=== PATIENT | male | born 1980 | race Caucasian/White ===

== ENCOUNTER 2019-03-11 14:15 | Inpatient (IN) | payer SELFPAY ==
[~2019-03-11 14:15] MED LIST: Iopamidol 370 76% 100 ML VIAL ONE; Iopamidol 370 76% 50 ML VIAL FS ONE
[2019-03-11] MEDS ORDERED: Ketamine 50 MG/ML (10ML VIAL) ONE (14:17)
[2019-03-11] MEDS ORDERED: Rocuronium Bromide 10 MG/ML (10ML VIAL) ONE (14:17)
[2019-03-11] MEDS ORDERED: Norepinephrine 4 MG/4 ML VIAL ONE (14:36)
[2019-03-11] MEDS ORDERED: Aspirin 300 MG Suppository ONE (14:39)
--- NOTE | 2019-03-11 14:39 | RAD ---
EXAM: XR Chest 1 View Portable PROVIDED CLINICAL HISTORY: Chest pain COMPARISON: None FINDINGS: The cardiac silhouette appears enlarged, which may be least partially on the basis of portable techni que. There is deviation of the trachea rightward which could be on the basis of mediastinal mass. Endotracheal tube is noted, which terminates just proximal to the region of the thoracic inlet. Exter nal defibrillator pad overlies the right chest. No definite focal consolidation. Assessment for pleural fluid and pneumothorax is limited given the supine nature of the study. IMPRESSION: Rightward deviation of the trachea, which could indicate mediastinal mass.
[2019-03-11] MEDS ORDERED: fentaNYL Citrate/PF 2,000 MCG in Sodium Chloride 0.9% 60 ML IV SCH (14:42)
[2019-03-11 14:44] LABS: Bilirubin Negative (Negative); Blood, Urine Small (Negative); Clarity Cloudy (Clear); Glucose, Urine (Dipstick) Negative (Negative); Leukocyte Negative (Negative); Nitrite Negative (Negative); Protein, Urine (Dipstick) > or equal to 300 mg/dL (Neg-Trace); Urobilinogen 0.2 mg/dL (0.2-1.0)
[2019-03-11 14:44] LABS: Hemoglobin 15.5 g/dL (14.0-18.0); Mean Corpuscular HGB CONC 33.5 g/dL (32.0-36.0); Mean Corpuscular Volume 89.6 fL (78.0-98.0); Mean Platelet Volume 10.2 fL (7.4-10.4); Platelet Count 188 thou/uL (130-400); RBC Distribution Width 12.2 % (11.5-14.5); Red Blood Cell (RBC) Count 5.15 mill/uL (4.70-6.10)
[2019-03-11 14:48] LABS: ALT (SGPT) 234 U/L (8-55); AST (SGOT) 97 U/L (5-34); Albumin 4.2 g/dL (3.5-5.0); Alkaline Phosphatase 57 U/L (40-150); Anion Gap 26 mmol/L (10-20); BUN (Urea Nitrogen) 18 mg/dL (8.9-20.6); Bilirubin, Total 0.4 mg/dL (0.2-1.2); CK (CPK) 224 U/L (30-200); Calc. Creatinine Clearance 0 mL/min (70-130); Calcium 8.9 mg/dL (7.8-10.44); Carbon Dioxide 14 mmol/L (22-29); Chloride 103 mmol/L (98-107); Estimated GFR-MDRD 62; Globulin 2.8 g/dL (2.4-3.5); Glucose 275 mg/dL (70-105); Potassium 3.3 mmol/L (3.5-5.1); Sodium 140 mmol/L (136-145)
[2019-03-11 14:50] LABS: Bacteria/HPF None Seen HPF (None Seen); WBC/HPF 0-3 HPF (0-3)
[2019-03-11 14:51] LABS: Sperm/HPF 4+ HPF (None Seen)
[2019-03-11 14:51] LABS: INR-International Normal Ratio 1.2; PTT 34.2 SEC (22.9-36.1)
[2019-03-11 14:59] LABS: Actual Bicarbonate (HCO3a) 16.4 mEq/L (22-28); Analyzer IN Cardio ER; Base Excess (BEa) -13.2 mEq/L (-2.0 to +3.0); CO2 Tension 52.7 mmHg (35.0-45.0); Calcium, Ionized 1.14 mmol/L (1.12-1.30); Carboxyhemoglobin (COHb) 0.1 gm% (0.0-3.0); Hemoglobin (Hb) 15.1 g/dL (14.0-18.0); O2 Tension (PaO2) 80.3 mmHg (80.0-100.0); Potassium - ABG Lab 3.33 mmol/L (3.70-5.30)
[2019-03-11 15:00] LABS: ALV-art Gradient 566.825 (0-20); Puncture Site RRA; pH, Arterial 7.11 (7.35-7.45)
[2019-03-11 15:11] LABS: Band 20 % (5-11); Lymphocytes 41 % (21-51); MDiff Complete? YES; Monocytes 6 % (0-10); Neutrophil 33 % (42-75); Platelet Morphology Comment Appears Adequate
[2019-03-11] MEDS ORDERED: Amiodarone 450 MG in Dextrose 5% in Water 250 ML IVPB SCH (15:15)
[2019-03-11] MEDS ORDERED: Sodium Chloride 0.9% 1,000 ML IV SCH ×2 (15:45→17:30)
[2019-03-11 16:00] LABS: Actual Bicarbonate (HCO3a) 22.5 mEq/L (22-28); O2 Tension (PaO2) 66.7 mmHg (80.0-100.0); pH, Arterial 7.19 (7.35-7.45)
[2019-03-11] MEDS ORDERED: Propofol 1,000 MG/100 ML VIAL IV ONE (16:00)
[2019-03-11 16:01] LABS: Base Excess (BEa) -6.7 mEq/L (-2.0 to +3.0); Carboxyhemoglobin (COHb) 0.3 gm% (0.0-3.0); Hemoglobin (Hb) 16.3 g/dL (14.0-18.0)
[2019-03-11 16:02] LABS: Calcium, Ionized 1.11 mmol/L (1.12-1.30); Potassium - ABG Lab 4.14 mmol/L (3.70-5.30); Puncture Site A-LINE
[2019-03-11] MEDS ORDERED: SYSTANE 3.5 GM TUBE EA EYE PRN (16:28)
[2019-03-11] MEDS ORDERED: Norepinephrine 8 MG/0.9% NS 250 ML IVPB PRN (16:28)
[2019-03-11] MEDS ORDERED: Insulin Regular 300 UNITS/3 ML VIAL SC PRN (16:28)
[2019-03-11] MEDS ORDERED: Vecuronium 10 MG VIAL ONE ×2 (16:29→17:16)
[2019-03-11] MEDS ORDERED: Sterile Water 10 ML ONE ×5 (16:30→23:41)
[2019-03-11 16:34] LABS: Actual Bicarbonate (HCO3a) 22.6 mEq/L (22-28); Base Excess (BEa) -3.3 mEq/L (-2.0 to +3.0); CO2 Tension 43.5 mmHg (35.0-45.0); Calcium, Ionized 1.07 mmol/L (1.12-1.30); Carboxyhemoglobin (COHb) 0.6 gm% (0.0-3.0); O2 Tension (PaO2) 97.5 mmHg (80.0-100.0); Potassium - ABG Lab 4.48 mmol/L (3.70-5.30); pH, Arterial 7.33 (7.35-7.45)
[2019-03-11] MEDS ORDERED: Morphine 2 MG/ML SYRINGE SLOW IVP PRN (16:34)
[2019-03-11] MEDS ORDERED: Fentanyl BOLUS 250 ML IVPB PRN (16:34)
[2019-03-11] MEDS ORDERED: Propofol BOLUS 1,000 MG/100 ML VIAL IV PRN (16:34)
[2019-03-11 16:40] LABS: ALV-art Gradient 347.225 (0-20); Puncture Site LINE
[2019-03-11] MEDS ORDERED: Heparin 10,000 UNITS/ 10 ML VIAL ONE (17:00)
[2019-03-11] MEDS ORDERED: Sodium Bicarb 50 MEQ/50 ML Abboject 8.4% SYRINGE ONE (17:00)
[2019-03-11] MEDS: Piperacillin/Tazobactam 3.375 GM in Sodium Chloride 0.9% 100 ML IVPB SCH ×2 (17:21→23:44)
[2019-03-11] MEDS: Ventilator Sedation Protocol FS SCH (17:25)
[2019-03-11] MEDS: fentaNYL Citrate/PF 2,000 MCG in Sodium Chloride 0.9% 60 ML IV SCH (17:26)
[2019-03-11] MEDS ORDERED: DO NOT USE PRE-EXISTING LYTE PROTOCOL FS SCH (17:30)
[2019-03-11] MEDS ORDERED: ALL FLUIDS SHOULD BE DEXTROSE FREE IF POSSIBLE FS SCH (17:30)
[2019-03-11 18:21] LABS: Lactic Acid 3.4 mmol/L (0.5-2.2)
[2019-03-11 18:24] LABS: Anion Gap 16 mmol/L (10-20); BUN (Urea Nitrogen) 18 mg/dL (8.9-20.6); Calc. Creatinine Clearance 193 mL/min (70-130); Calcium 8.5 mg/dL (7.8-10.44); Carbon Dioxide 17 mmol/L (22-29); Chloride 106 mmol/L (98-107); Estimated GFR-MDRD Greater than 90; Glucose 156 mg/dL (70-105); Magnesium 2.2 mg/dL (1.6-2.6); Potassium 4.2 mmol/L (3.5-5.1); Sodium 135 mmol/L (136-145)
[2019-03-11 19:12] LABS: CKMB 246.7 ng/mL (0-6.6)
--- NOTE | 2019-03-11 19:28 | HP ---
HISTORY OF PRESENT ILLNESS: Jorje Babin is a 39-year-old white male, who apparently was complaining of severe chest discomfort to his family. They left him and returned 1 hour later and found him collapsed on the floor. He was pulseless. They started CPR, called EMS. When EMS arrived, they gave 2 rounds of epinephrine, continued CPR, and after the 3rd shock, he returned to sinus rhythm. The patient is intubated, unresponsive at this time. Past medical history, medications, allergies, etc., all of this is unknown. PHYSICAL EXAMINATION: VITAL SIGNS: Blood pressure 130/72, pulse of 120. CHEST: Clear. CARDIAC: S1 and S2 normal without any S3, S4, or murmurs. ABDOMEN: Obese. Normal bowel sounds. EXTREMITIES: Revealed no clubbing, cyanosis, or edema. NEUROLOGICAL: The patient is unresponsive to painful stimuli. DIAGNOSTIC STUDIES: EKG reveals 2-mm of ST-segment elevation in II, III, and F , as well as 3-mm of ST-segment depression in V3 and V4, and 2-mm of ST-segment depression in V2. Laboratory, no results are available. IMPRESSION: 1. Inferoposterior ST-elevation myocardial infarction. 2. Ventricular fibrillation arrest with CPR and return of spontaneous circulation. 3. Remainder of medical history is unknown. PLAN: There is no family here and I feel that even though his neurological outcome is definitely in question, with this very young patient, it will be best to go to the construction or leak gang laborer emergently. Additional history from -no diabetes, hypercholesterolemia or diabetes. No meds NSAID allergy-?reaction Nonsmoker. Job ID: [id number] MTDD
[2019-03-11] MEDS: Vecuronium 10 MG VIAL IV PRN ×3 (19:40→23:43)
[2019-03-11] MEDS: Famotidine/PF 20 mg/2ml Vial SLOW IVP SCH (21:00)
[2019-03-11] MEDS: Amiodarone 450 MG in Dextrose 5% in Water 250 ML IVPB SCH (21:00)
--- NOTE | 2019-03-11 22:52 | CON ---
DATE OF CONSULTATION: 03/11/2019 SERVICE: Pulmonary Medicine. REASON FOR CONSULT: Respiratory failure. HISTORY OF PRESENT ILLNESS: The patient is a 39-year-old white male with past medical history significant for diabetes, who presents to the hospital after found down at home. There was no pulse. EMS services were contacted. Spontaneous return of circulation was established and the patient was subsequently brought to the emergency department. He was discovered to have an acute ST-elevation RI and brought to the orthodontic lab technician, and RCA lesion was open. He required a defibrillation on a second occasion in the orthodontic lab technician. Ultimately, a perfusable rhythm was once again re-established. He was tucked in the ICU. He cannot provide any additional elements of the history and remains encephalopathic. He is not able to follow any commands, though he has some brainstem reflexes. I have no ability to get additional history from the patient. Family members are not currently available. It is not clear to me what his total down time was. PAST MEDICAL HISTORY: 1. Asthma. 2. Type 2 diabetes mellitus. PAST SURGICAL HISTORY: Unknown. SOCIAL HISTORY: Unknown. FAMILY HISTORY: Noncontributory. ALLERGIES: NONSTEROIDAL ANTI-INFLAMMATORY DRUGS. MEDICATIONS: List of his inpatient medications was reviewed. Multiple updates were made at this time. REVIEW OF SYSTEMS: This cannot be performed as the patient is currently encephalopathic. PHYSICAL EXAMINATION: VITAL SIGNS: Afebrile. Pulse 123, blood pressure 135/86, respirations 25, saturation 97% on 70% FiO2, and PEEP of 7. GENERAL: The patient is intubated. He is on minimal sedation. He remains encephalopathic. HEENT: Normocephalic and atraumatic. Sclerae white. Conjunctivae pink. Oral mucosa is moist without lesions. LUNGS: Decent air entry. There is no prolonged expiratory phase. I hear no wheezing. HEART: Normal rate and regular. ABDOMEN: Soft, nontender, and nondistended. Bowel sounds are positive. Bowel sounds are hypoactive. : No Chiu. NEUROLOGIC: Grossly nonfocal. LABORATORY DATA: WBC 9.0, hemoglobin 13.5, platelets 188,000. Neutrophil count is 33% on top of 20% bands. INR 1.2. PH 7.19, pCO2 of 60, PO2 of 67 on 70% FiO2. Creatinine 1.29, anion gap 26, BUN 18. Bicarb 14. Basic metabolic profile is otherwise unremarkable. Troponin is 0.108. Proteinuria is present. Otherwise, urinalysis is fairly bland. IMAGING: Chest x-ray demonstrates low lung volumes. There is a wide mediastinum. Endotracheal tube is in place. ASSESSMENT: 1. Acute hypoxic respiratory failure. 2. Cardiogenic shock. 3. Ventricular tachycardia arrest, [id number] status post return of circulation, downtime unknown. 4. Coronary artery disease, status post PCI to the RCA. 5. Type 2 diabetes mellitus. 6. Shock liver. 7. Acute kidney injury. 8. ST-elevation myocardial infarction. 9. Metabolic encephalopathy. DISCUSSION AND PLAN: I will schedule some nebulized medication, so that asthma is not an issue while he is here. I will schedule some antibiotics as he has significant purulent secretions from the endotracheal tube currently. This will be directed at aspirated organisms. I will initiate the cooling protocol. With this, we will check electrolytes including basic metabolic profile, calcium, magnesium and phosphorus routinely. These will be replaced if necessary. At this point, the patient is critically ill. The biggest unknown is how much inflammatory cascade is going to occur, and whether or not his brain is going to wake up from this event. Time will tell. CRITICAL CARE TIME: 60 minutes. Job ID: [id number] MTDD
[2019-03-12 00:14] LABS: Prothrombin Time 13.7 SEC (12.0-14.7)
[2019-03-12 00:15] LABS: PTT 28.3 SEC (22.9-36.1)
[2019-03-12 00:21] LABS: #Basophils 0.1 thou/uL (0.0-0.2); #Lymphocytes 1.1 thou/uL (1.20-3.40); #Monocytes 0.8 thou/uL (0.11-0.59); #Neutrophils 13.5 thou/uL (1.40-6.50); %Basophils 0.4 % (0.0-1.0); %Eosinophils 0.2 % (0.0-10.0); %Lymphocytes 6.9 % (21.0-51.0); %Monocytes 4.9 % (0.0-10.0); %Neutrophils 87.6 % (42.0-75.0); Hemoglobin 16.8 g/dL (14.0-18.0); Mean Corpuscular HGB CONC 33.9 g/dL (32.0-36.0); Mean Corpuscular Hemoglobin 29.3 pg (27.0-31.0); Mean Corpuscular Volume 86.5 fL (78.0-98.0); Mean Platelet Volume 9.7 fL (7.4-10.4); Platelet Count 166 thou/uL (130-400); RBC Distribution Width 12.2 % (11.5-14.5); Red Blood Cell (RBC) Count 5.74 mill/uL (4.70-6.10); White Blood Cell (WBC) Count 15.4 thou/uL (4.8-10.8)
[2019-03-12 00:30] LABS: Anion Gap 15 mmol/L (10-20); BUN (Urea Nitrogen) 16 mg/dL (8.9-20.6); Calc. Creatinine Clearance 232 mL/min (70-130); Calcium 8.2 mg/dL (7.8-10.44); Carbon Dioxide 15 mmol/L (22-29); Chloride 110 mmol/L (98-107); Estimated GFR-MDRD Greater than 90; Glucose 182 mg/dL (70-105); Magnesium 1.9 mg/dL (1.6-2.6); Phosphorus 1.4 mg/dL (2.3-4.7); Potassium 3.4 mmol/L (3.5-5.1); Sodium 137 mmol/L (136-145)
[2019-03-12 01:48] LABS: CKMB 329.9 ng/mL (0-6.6)
[2019-03-12] MEDS ORDERED: Sterile Water 10 ML ONE ×6 (02:10→10:45)
[2019-03-12] MEDS: Vecuronium 10 MG VIAL IV PRN ×5 (02:11→10:48)
[2019-03-12] MEDS: Propofol 1,000 MG/100 ML VIAL IV PRN ×4 (02:43→21:50)
[2019-03-12] MEDS: Amiodarone 450 MG in Dextrose 5% in Water 250 ML IVPB SCH (04:42)
[2019-03-12] MEDS: Piperacillin/Tazobactam 3.375 GM in Sodium Chloride 0.9% 100 ML IVPB SCH ×4 (05:03→23:44)
[2019-03-12 05:33] LABS: Prothrombin Time 13.4 SEC (12.0-14.7)
[2019-03-12 05:34] LABS: Hemoglobin A1c 5.3 % (4.0-6.0)
[2019-03-12 05:59] LABS: ALT (SGPT) 249 U/L (8-55); AST (SGOT) 333 U/L (5-34); Albumin 4.2 g/dL (3.5-5.0); Alkaline Phosphatase 33 U/L (40-150); Anion Gap 14 mmol/L (10-20); BUN (Urea Nitrogen) 15 mg/dL (8.9-20.6); Bilirubin, Total 0.7 mg/dL (0.2-1.2); Calc. Creatinine Clearance 236 mL/min (70-130); Calcium 8.4 mg/dL (7.8-10.44); Carbon Dioxide 17 mmol/L (22-29); Cardiac Risk 6.4 (Less than 4.5); Chloride 108 mmol/L (98-107); Cholesterol 308 mg/dl (< 200 Desired); Estimated GFR-MDRD Greater than 90; Globulin 2.6 g/dL (2.4-3.5); Glucose 149 mg/dL (70-105); HDL Cholesterol 48 mg/dL (>60 Neg Risk); LDL Cholesterol, Calculated 230 mg/dL; Phosphorus 1.7 mg/dL (2.3-4.7); Protein, Total 6.8 g/dL (6.0-8.3); Sodium 136 mmol/L (136-145); Triglycerides 152 mg/dL (Less than 150)
[2019-03-12] MEDS ORDERED: Amiodarone 450 MG in Dextrose 5% in Water 250 ML IVPB SCH (06:00)
[2019-03-12] MEDS ORDERED: Potassium Chloride 40 MEQ in Sodium Chloride 0.9% 250 ML 250 ML IVPB SCH (06:15)
[2019-03-12] MEDS ORDERED: Potassium Phosphate 30 MMOL in Sodium Chloride 0.9% 500 ML IV SCH (06:15)
[2019-03-12 06:45] LABS: Hemoglobin 16.1 g/dL (14.0-18.0); Mean Corpuscular HGB CONC 32.5 g/dL (32.0-36.0); Mean Corpuscular Hemoglobin 28.2 pg (27.0-31.0); Mean Corpuscular Volume 86.8 fL (78.0-98.0); Mean Platelet Volume 9.9 fL (7.4-10.4); Platelet Count 168 thou/uL (130-400); RBC Distribution Width 12.3 % (11.5-14.5); Red Blood Cell (RBC) Count 5.73 mill/uL (4.70-6.10); White Blood Cell (WBC) Count 13.4 thou/uL (4.8-10.8)
[2019-03-12 06:46] LABS: CKMB 368.6 ng/mL (0-6.6)
[2019-03-12 06:51] LABS: Band 14 % (5-11); Lymphocytes 18 % (21-51); MDiff Complete? YES; Monocytes 6 % (0-10); Neutrophil 62 % (42-75)
--- NOTE | 2019-03-12 07:59 | RAD ---
EXAM: CHEST ONE VIEW HISTORY: Patient on ventilator. Follow-up evaluation. COMPARISON: 03/11/2019 FINDINGS: Pacing pad overlying right chest has been removed. Endotracheal tube is again noted in place with tip again overlying the T1-2 level and well above the level of the sherlyn as well as just above the level of the thoracic inlet. Nasogastric tube remains in place. Cardiac silhouette is magnified by pr ojection but is probably mildly enlarged. Pulmonary vasculature is mildly increased on today's exam. There is increased linear density in the right midlung zone which may be relate to atelectasis, but a small amount of pleural fluid along the minor fissure is also a possibility. There is mention of tracheal deviation on the right on the prior exam. The prominent deviation of the prior st udy is not appreciated on today's exam. RAIMUNDO is deviated to the right, the patient is also rotated to the right on today's exam. IMPRESSION: 1. Probable tiny of fluid within the minor fissure on the right with adjacent atelectasis. 2. Endotracheal tube is unchanged in position with tip overlying the T1 vertebral body and well above the level of the sherlyn. Nasogastric tube is also stable in position. 3. Prominent rightward deviation of the trachea on the prior study which is less apparent on today's exam. While the trachea does appear mildly deviated to the right, the patient is also rotated to the right on provided image.
[2019-03-12] MEDS: Clopidogrel Bisulfate 75 MG TAB PO SCH (08:50)
[2019-03-12] MEDS: Famotidine/PF 20 mg/2ml Vial SLOW IVP SCH ×2 (08:50→21:09)
[2019-03-12] MEDS ORDERED: Aspirin Chewable 81 MG TAB PO SCH (09:00)
[2019-03-12] MEDS: fentaNYL Citrate/PF 2,000 MCG in Sodium Chloride 0.9% 60 ML IV SCH (10:58)
[2019-03-12] MEDS: Lorazepam 2 MG/ML VIAL SLOW IVP PRN ×3 (11:53→23:44)
[2019-03-12 12:33] LABS: #Basophils 0.1 thou/uL (0.0-0.2); #Lymphocytes 1.8 thou/uL (1.20-3.40); #Monocytes 0.5 thou/uL (0.11-0.59); #Neutrophils 7.3 thou/uL (1.40-6.50); %Basophils 0.5 % (0.0-1.0); %Eosinophils 0.3 % (0.0-10.0); %Lymphocytes 18.6 % (21.0-51.0); %Neutrophils 75.5 % (42.0-75.0); Hemoglobin 16.3 g/dL (14.0-18.0); Mean Corpuscular Hemoglobin 30.1 pg (27.0-31.0); Mean Corpuscular Volume 86.1 fL (78.0-98.0); Mean Platelet Volume 9.5 fL (7.4-10.4); Platelet Count 145 thou/uL (130-400); RBC Distribution Width 12.2 % (11.5-14.5); Red Blood Cell (RBC) Count 5.41 mill/uL (4.70-6.10); White Blood Cell (WBC) Count 9.6 thou/uL (4.8-10.8)
[2019-03-12 12:43] LABS: INR-International Normal Ratio 1.1; PTT 28.1 SEC (22.9-36.1)
[2019-03-12 12:57] LABS: Anion Gap 13 mmol/L (10-20); BUN (Urea Nitrogen) 13 mg/dL (8.9-20.6); Calc. Creatinine Clearance 271 mL/min (70-130); Carbon Dioxide 17 mmol/L (22-29); Chloride 114 mmol/L (98-107); Estimated GFR-MDRD Greater than 90; Glucose 107 mg/dL (70-105); Magnesium 1.7 mg/dL (1.6-2.6); Phosphorus 2.8 mg/dL (2.3-4.7); Potassium 2.7 mmol/L (3.5-5.1); Sodium 141 mmol/L (136-145)
[2019-03-12] MEDS ORDERED: Magnesium 2 GM/50 ML 2 GM in Premix Bag 1 BAG IVPB SCH ×2 (13:00→13:15)
[2019-03-12] MEDS: Potassium Chloride 40 MEQ in Premix Bag 1 BAG IVPB SCH ×2 (13:00→17:40)
--- NOTE | 2019-03-12 13:15 | PRG ---
DATE OF SERVICE: 03/12/2019 SERVICE: Pulmonary Medicine. INTERVAL HISTORY: The patient is doing really well from respiratory standpoint. His oxygen has been weaned down. Mentation means, things are not much better. He cannot provide any additional elements of the history. We are still on the cooling protocol. He is requiring intermittent paralytics. He is also on fairly significant sedation. As such, no neurologic information can be gleaned from the patient. PHYSICAL EXAMINATION: VITAL SIGNS: Afebrile, pulse 62, blood pressure 144/96, respirations 21, and saturation 100% currently on 37% FiO2 and a PEEP of 5. GENERAL: The patient is intubated, sedated, and paralyzed. HEENT: Normocephalic and atraumatic. Sclerae white. Conjunctivae pink. Oral mucosa is moist without lesions. LUNGS: Very good air entry. There are crackles and rhonchi present. No prolonged expiratory phase or wheezing is appreciated. HEART: Normal rate. Regular. ABDOMEN: Soft, nontender, and nondistended. Bowel sounds are positive. MUSCULOSKELETAL: No cyanosis or clubbing. There is no pitting in the bilateral lower extremities. NEUROLOGIC: Pupils are sluggishly reactive today. He will spontaneously sluggishly open and close his eyes. Currently, he is riding the ventilator. He is not currently withdrawing from noxious stimuli in the bilateral upper extremities, but once again, he is paralyzed. LABORATORY DATA: WBC 9.6, hemoglobin 16.3, and platelets 145,000. INR 1.1. A pH of 7.33, pCO2 of 43, and pO2 of 97. Potassium 3.0. Creatinine is 0.71. Otherwise, basic metabolic profile is unremarkable. Phosphorus is 1.7. AST and ALT are gently uptrending, alkaline phosphatase 33 and downtrending. TSH falls within the normal limits. Troponin is 68. Hemoglobin A1c 5.3, glucose 120. Urinalysis is unremarkable. Respiratory culture is negative to-date. Moderate white cells are seen with multiple different species present on the Gram stain. IMAGING: Chest x-ray shows endotracheal tube is in good position. Enteric catheter courses below the level of the diaphragm. Interstitial infiltrates are present throughout bilateral lung hernandez. There is bibasilar atelectasis present. Lung volumes are small. Cardiac silhouette is generous. ASSESSMENT: 1. Acute hypoxic respiratory failure. 2. Ventricular tachycardia arrest, [id number] with return of circulation, unknown down time. 3. Coronary artery disease status post percutaneous coronary intervention to the right coronary artery. 4. Shock liver. 5. Acute kidney injury with absent urine output at this point. 6. ST-elevation myocardial infarction. 7. Anoxic brain injury, suspected. DISCUSSION AND PLAN: We are still on a cooling protocol. He will be rewarmed this afternoon. Starting tomorrow morning, we will really start looking closely his neurologic function and follow his neurologic exam through time. We replaced electrolytes. Multiple adjustments have been made to the ventilator in order to continue providing adequate ventilation. We will decrease oxygen as tolerated. I am going to continue our empiric antibiotics as directed and aspirated organisms into the lungs. The family understands that there is a possibility he could have a poor neurologic recovery, but obviously, we are all still hoping for the best. CRITICAL CARE TIME: 30 minutes. Job ID: [id number]
[2019-03-12 13:57] LABS: CKMB 304.8 ng/mL (0-6.6); Critical Call CKMB RESULT DECREASING
[2019-03-12] MEDS: Ventilator Sedation Protocol FS SCH (17:00)
--- NOTE | 2019-03-12 21:53 | HP ---
ADDENDUM: Another EKG has been repeated and now there are [address]-elevation in lead III, 4 mm in lead II and F, and 4 [address]-segment depression in V2 through V4. Job ID: [id number]
[2019-03-13] MEDS: Acetaminophen 1,000 MG in Premix Bag 1 BAG IVPB PRN ×4 (00:05→18:48)
[2019-03-13] MEDS: fentaNYL Citrate/PF 2,000 MCG in Sodium Chloride 0.9% 60 ML IV SCH (00:13)
[2019-03-13] MEDS: Propofol 1,000 MG/100 ML VIAL IV PRN (04:02)
[2019-03-13] MEDS: Lorazepam 2 MG/ML VIAL SLOW IVP PRN ×2 (04:02→07:09)
[2019-03-13 05:10] LABS: Band 12 % (5-11); Hemoglobin 15.6 g/dL (14.0-18.0); Lymphocytes 10 % (21-51); MDiff Complete? YES; Mean Corpuscular Hemoglobin 30.1 pg (27.0-31.0); Mean Corpuscular Volume 88.6 fL (78.0-98.0); Mean Platelet Volume 10.5 fL (7.4-10.4); Monocytes 6 % (0-10); Neutrophil 72 % (42-75); Platelet Count 141 thou/uL (130-400); RBC Distribution Width 12.7 % (11.5-14.5); Red Blood Cell (RBC) Count 5.19 mill/uL (4.70-6.10); White Blood Cell (WBC) Count 10.2 thou/uL (4.8-10.8)
[2019-03-13 05:22] LABS: ALT (SGPT) 196 U/L (8-55); AST (SGOT) 165 U/L (5-34); Albumin 3.9 g/dL (3.5-5.0); Alkaline Phosphatase 32 U/L (40-150); Anion Gap 16 mmol/L (10-20); BUN (Urea Nitrogen) 16 mg/dL (8.9-20.6); Bilirubin, Total 0.9 mg/dL (0.2-1.2); Calc. Creatinine Clearance 175 mL/min (70-130); Calcium 8.1 mg/dL (7.8-10.44); Carbon Dioxide 21 mmol/L (22-29); Chloride 105 mmol/L (98-107); Estimated GFR-MDRD 87; Globulin 3.4 g/dL (2.4-3.5); Glucose 91 mg/dL (70-105); Potassium 4.8 mmol/L (3.5-5.1); Protein, Total 7.3 g/dL (6.0-8.3); Sodium 137 mmol/L (136-145)
[2019-03-13] MEDS: Piperacillin/Tazobactam 3.375 GM in Sodium Chloride 0.9% 100 ML IVPB SCH ×3 (06:25→18:08)
[2019-03-13 06:40] LABS: Actual Bicarbonate (HCO3a) 20.9 mEq/L (22-28); CO2 Tension 37.8 mmHg (35.0-45.0); Calcium, Ionized 1.05 mmol/L (1.12-1.30); Carboxyhemoglobin (COHb) 1.2 gm% (0.0-3.0); Hemoglobin (Hb) 15.2 g/dL (14.0-18.0); O2 Tension (PaO2) 76.7 mmHg (80.0-100.0); Potassium - ABG Lab 3.67 mmol/L (3.70-5.30); pH, Arterial 7.36 (7.35-7.45)
[2019-03-13 07:11] LABS: Puncture Site ALINE
[2019-03-13] MEDS: Famotidine/PF 20 mg/2ml Vial SLOW IVP SCH ×2 (09:31→21:41)
[2019-03-13] MEDS: Clopidogrel Bisulfate 75 MG TAB PO SCH (09:31)
[2019-03-13] MEDS ORDERED: Morphine 4 MG/ML VIAL ONE (14:12)
--- NOTE | 2019-03-13 14:22 | PRG ---
DATE OF SERVICE: 03/13/2019 SERVICE: Pulmonary Medicine. INTERVAL HISTORY: The patient is doing outstanding from respiratory standpoint. He has been weaned down to 23% FiO2. He cannot provide any additional elements of the history at this point. He is currently fairly heavily sedated. He has been rewarmed overnight. This morning, we are initiating a sedation holiday to see how he is doing from a mentation standpoint. Otherwise, there are no significant overnight events. PHYSICAL EXAMINATION: VITAL SIGNS: Afebrile, pulse 90, blood pressure 119/58, respirations 19, and saturation 98% on 27% FiO2 and a PEEP of 5. GENERAL: The patient is intubated. He is under the influence of some sedation. HEENT: Normocephalic and atraumatic. Sclerae are white. Conjunctivae are pink. Oral mucosa is moist without lesions. LUNGS: Very good air entry. There is some rhonchi present. No crackles or wheezing appreciated. HEART: Normal rate and regular. ABDOMEN: Soft, nontender, and nondistended. Bowel sounds are positive. MUSCULOSKELETAL: No cyanosis or clubbing. There is no pitting in the bilateral lower extremities. NEUROLOGIC: He coughs, gags, overbreathes the ventilator, and has pupils that are equal, round, and reactive. They are a little smaller than yesterday. There is less movement to them, but they are less sluggish. This is likely an effect of the fentanyl. He does withdraw from noxious stimuli in the right lower extremity and bilateral upper extremity. I have not seen anything purposeful yet. LABORATORY DATA: WBC 10.1, hemoglobin 15.6, and platelets 141,000. A pH 7.36, pCO2 38, and pO2 77. Creatinine 0.69 and uptrending and bicarb 21 and has improved. Potassium 4.8. AST, ALT, and alkaline phosphatase are all trending downward. Urinalysis is positive for proteinuria and minimal blood. Blood cultures x2 and respiratory cultures are both negative to date. ASSESSMENT: 1. Acute hypoxic respiratory failure, improved. 2. ST-elevation myocardial infarction, status post percutaneous coronary intervention to the right coronary artery. 3. Ventricular tachycardia arrest, [id number] with return of circulation, unknown downtime. 4. Coronary artery disease. 5. Shock liver, resolving. 6. Acute kidney injury, resolving. 7. Anoxic brain injury, hopefully mild. DISCUSSION AND PLAN: We are going to continue supportive care. We will give him a daily sedation holiday to see what his mentation is like. At this point, we are hoping to see a robust neurologic recovery. Otherwise, supportive care including ventilator and antibiotics will be continued. He will remain on mechanical ventilation until he can protect his airway; at that point, the ventilator will be discontinued, and we will interrupt all sedating medications. CRITICAL CARE TIME: 30 minutes. Job ID: [id number]
[2019-03-13] MEDS ORDERED: Morphine 2 MG/ML SYRINGE SLOW IVP SCH (14:45)
[2019-03-13] MEDS: Ventilator Sedation Protocol FS SCH (19:08)
[2019-03-13] MEDS ORDERED: Acetaminophen 1,000 MG in Premix Bag 1 BAG IVPB PRN (22:19)
[2019-03-13] MEDS: Metoprolol Tartrate 25 MG TAB PER TUBE SCH (22:31)
[2019-03-14] MEDS: Piperacillin/Tazobactam 3.375 GM in Sodium Chloride 0.9% 100 ML IVPB SCH ×5 (00:11→23:50)
[2019-03-14] MEDS: Clopidogrel Bisulfate 75 MG TAB PO SCH (07:46)
[2019-03-14] MEDS: Metoprolol Tartrate 25 MG TAB PER TUBE SCH (07:46)
[2019-03-14] MEDS: Famotidine/PF 20 mg/2ml Vial SLOW IVP SCH (07:48)
[2019-03-14] MEDS: Acetaminophen 1,000 MG in Premix Bag 1 BAG IVPB PRN (12:15)
[2019-03-14] MEDS ORDERED: Enoxaparin Sodium 40 MG/0.4 ML SYRINGE SC SCH (12:15)
--- NOTE | 2019-03-14 12:47 | PRG ---
DATE OF SERVICE: 03/14/2019 SERVICE: Pulmonary Medicine. INTERVAL HISTORY: The patient is doing absolutely wonderful from mentation standpoint. Denies any current chest pain, cough, nausea, vomiting, fevers, or chills. He is breathing comfortably. Otherwise, his strength is improving. He sitting in a chair today. He actually demonstrated good strength in getting there. PHYSICAL EXAMINATION: VITAL SIGNS: Afebrile with a T-max of 99.1, pulse 93, blood pressure 137/95, respirations 17, and saturation 98% on room air. GENERAL: The patient is awake and alert, in no apparent distress. LUNGS: Very good air entry. There is no prolonged expiratory phase. Rhonchi and crackles are present. HEART: Normal rate and regular. ABDOMEN: Soft, nontender, and nondistended. Bowel sounds are positive. MUSCULOSKELETAL: No cyanosis or clubbing. There is trace to 1+ pitting in the upper extremity and lower extremity. NEUROLOGIC: Grossly nonfocal. LABORATORY DATA: WBC 10.2, hemoglobin 15.6, and platelets 141,000. Basic metabolic profile is unremarkable. Blood sugars are all stable. Blood cultures x2 and respiratory culture negative to date. ASSESSMENT: 1. Acute hypoxic respiratory failure, resolving. 2. ST-elevation myocardial infarction, status post percutaneous coronary intervention to the right coronary artery. 3. Ventricular tachycardia arrest, [id number] with return of circulation, and minimal neurologic sequelae. 4. Coronary artery disease. 5. Shock liver, resolved. 6. Acute kidney injury, resolved. DISCUSSION AND PLAN: The patient tolerated extubation just fine yesterday. He did not have any significant hemodynamic instability overnight. As such, he can be transitioned to the telemetry unit. Pulmonary/Critical Care will continue to follow along. Glucose checks will be discontinued. Job ID: [id number]
[2019-03-14] MEDS: HYDROcodone/Acetaminophen 10/325 mg Tablet PO PRN ×2 (15:29→22:25)
[2019-03-14] MEDS: Metoprolol Tartrate 25 MG TAB PO SCH (21:08)
[2019-03-15 04:45] LABS: #Eosinphils 0.1 thou/uL (0.0-0.7); #Lymphocytes 2.6 thou/uL (1.20-3.40); #Monocytes 0.6 thou/uL (0.11-0.59); #Neutrophils 4.4 thou/uL (1.40-6.50); %Basophils 0.4 % (0.0-1.0); %Eosinophils 0.7 % (0.0-10.0); %Lymphocytes 33.6 % (21.0-51.0); %Monocytes 8.3 % (0.0-10.0); Mean Corpuscular HGB CONC 34.1 g/dL (32.0-36.0); Mean Corpuscular Hemoglobin 29.7 pg (27.0-31.0); Mean Corpuscular Volume 87.3 fL (78.0-98.0); Mean Platelet Volume 9.2 fL (7.4-10.4); Platelet Count 131 thou/uL (130-400); RBC Distribution Width 12.3 % (11.5-14.5); Red Blood Cell (RBC) Count 4.36 mill/uL (4.70-6.10); White Blood Cell (WBC) Count 7.8 thou/uL (4.8-10.8)
[2019-03-15 04:58] LABS: Phosphorus 3.6 mg/dL (2.3-4.7)
[2019-03-15] MEDS: Piperacillin/Tazobactam 3.375 GM in Sodium Chloride 0.9% 100 ML IVPB SCH ×3 (05:58→17:20)
[2019-03-15] MEDS: Metoprolol Tartrate 25 MG TAB PO SCH ×2 (07:30→21:17)
[2019-03-15] MEDS: Clopidogrel Bisulfate 75 MG TAB PO SCH (07:30)
[2019-03-15] MEDS: HYDROcodone/Acetaminophen 10/325 mg Tablet PO PRN ×2 (07:31→22:27)
[2019-03-15] MEDS ORDERED: Enoxaparin Sodium 40 MG/0.4 ML SYRINGE SC SCH (09:00)
[2019-03-15] MEDS ORDERED: Iopamidol 370 76% 100 ML VIAL ONE (10:50)
--- NOTE | 2019-03-15 13:12 | PRG ---
DATE OF SERVICE: 03/15/2019 SERVICE: Pulmonary Medicine. INTERVAL HISTORY: The patient is doing really well from respiratory standpoint. He is breathing very comfortably. He has no chest discomfort, nausea, vomiting, fevers, or chills. Otherwise, he is in his usual state of health. PHYSICAL EXAMINATION: VITAL SIGNS: Afebrile with a T-max of 100.2, pulse 93, blood pressure 135/90, respirations 20, saturation 100% on room air. GENERAL: The patient is awake and alert, in no apparent distress. LUNGS: Very good air entry. No prolonged expiratory phase, wheezing, or crackles are present. HEART: Normal rate, regular. ABDOMEN: Soft, nontender, nondistended. Bowel sounds are positive. MUSCULOSKELETAL: No cyanosis or clubbing. There is no pitting in the bilateral lower extremities. He has 2+ pitting below his cuff in the left upper extremity. NEUROLOGIC: Grossly nonfocal. LABORATORY DATA: Hemoglobin 13.0. Basic metabolic profile is otherwise unremarkable. INR 1.1. Magnesium 1.9, phosphorus 3.6. Blood cultures x2 and respiratory cultures are negative to date. IMAGING DATA: Echocardiogram shows 40% to 45% ejection fraction with hypokinesis involving the inferior portion of the left ventricle. Left atrium is mildly dilated. The RV function is normal in size and function. ASSESSMENT: 1. Acute hypoxic respiratory failure, resolved. 2. ST-elevation myocardial infarction, status post percutaneous coronary intervention of the right coronary artery. 3. Ventricular tachycardia arrest, [id number] with return of circulation and minimal neurologic sequelae. 4. Coronary artery disease. 5. Left upper extremity swelling. DISCUSSION AND PLAN: I will do an ultrasound of the left upper extremity to make certain that we do not have a DVT there. I will also do a CT PE protocol. The reason of doing this is that we can exclude the possibility of a pulmonary embolism, and also evaluate the mediastinal structures as the chest x-ray showed very large deviation to the right giving a possibility of aortic root aneurysm. Provided these things are unremarkable, the patient will have no further requirements for Pulmonary Critical Care opinion, and I will sign off. I will follow him if he stays in this location. Job ID: [id number]
--- NOTE | 2019-03-15 14:27 | ULT ---
EXAM: US Venous Doppler Lt [facility] PROVIDED CLINICAL HISTORY: Focal swelling left upper extremity. COMPARISON: None FINDINGS: Grayscale, color-flow, Doppler evaluation, and spectral analysis of the left upper extremity venous s tructures is performed with 2-D imaging. There is normal flow demonstrated within the left internal jugular, subclavian, and axillary veins. Normal lumen compressibility involving the left axillary vei n. Normal luminal compressibility and flow is seen involving the left brachial vein with flow demonstrated in the left ulnar and radial veins. There is increased luminal echogenicity and decreased lumen compressibility involving a large portion of the the left cephalic vein from the level of the forearm to the upper arm with absence of compressibility seen involving the cephalic vein at the level of the antecubital fossa and at the lev el of the distal arm. There are also scattered areas of increased luminal echogenicity and decreased lumen compressibility involving the left upper extremity basilic vein with absent compressi bility involving the basilic vein at the level of the distal arm and at the level of antecubital fossa consistent with occlusive thrombus at this level. Minimal flow is seen in the remainder of the basilic vein. IMPRESSION: 1. Areas of occlusive thrombus in addition to areas of nonocclusive thrombus involving the left upper extremity cephalic and basilic veins which are superficial veins. 2. No evidence of a DVT involving the visualized deep venous structures left upper extremity. 3. Above findings discussed with Kelley, the nurse on the hospital floor on 03/15/2019 at 1424 hours.
--- NOTE | 2019-03-15 16:01 | CT ---
CT PULMONARY ANGIOGRAM WITH IV CONTRAST AND 3D POSTPROCESSIN03/15/19 HISTORY: Chest pain. FINDINGS: There is good contrast opacification of the pulmonary artery vasculature with small filling defects i n the branch of the left upper lobe artery. The thoracic aorta is well opacified without aneurysmal d issection. No pericardial effusion is seen. There are small bilateral pleural effusions with adjacent infiltrates/atelectatic changes. There are mild degenerative changes in the spine. IMPRESSION: 1. Findings are suspicious for small pulmonary embolism in the left upper lobe. 2. No evidence of thoracic aortic aneurysm or dissection. 3. Small bilateral pleural effusions with adjacent infiltrate/atelectatic changes. Discussed over the telephone with ER physician, Dr. Andrew Huerta at 3 p.m. POS: OFF
[2019-03-15] MEDS ORDERED: Furosemide 20 MG/2 ML VIAL SLOW IVP SCH (17:30)
--- NOTE | 2019-03-15 18:32 | PDOC.PN ---
- Subjective Encounter Start Date: 03/15/19 Encounter Start Time: 18:00 Subjective: Sore chest from chest compressions, mild cough with small -: amount sputum, no fever, no SOB/Wheezing/Chest tight. LUE with pain, -: swelling, mild redness from distal IV site to elbow. No other symptoms. - Objective MAR Reviewed: Yes Vital Signs & Weight: Vital Signs (12 hours) Temp Pulse Pulse Pulse Resp BP BP 03/15/19 13:56 87 20 03/15/19 11:48 97.0 F L 93 20 03/15/19 09:26 103 H 96 139/92 H 124/88 03/15/19 07:29 98.1 F 03/15/19 06:55 93 21 H BP Pulse Ox Pulse Ox Pulse Ox 03/15/19 13:56 93 L 03/15/19 11:48 135/90 100 03/15/19 09:26 98 100 03/15/19 07:29 03/15/19 06:55 94 L Weight Admit Weight 254 lb 10.142 oz Weight 252 lb 13.923 oz Most Recent Monitor Data Heart Rate from ECG 95 NIBP 125/89 NIBP BP-Mean 101 Respiration from ECG 22 SpO2 100 I&O: 03/14/19 03/15/19 03/16/19 06:59 06:59 06:59 Intake Total 1451.7 1920 1320 Output Total 1165 575 Balance 286.7 1345 1320 Result Diagrams: 03/15/19 04:21 03/13/19 04:25 Additional Labs: Accuchecks 03/15/19 16:46 POC Glucose 80 Radiology Reviewed by me: Yes (U/S LUE- clots in bascilic and cephalic, no DVT; CTA chest- small PE in ANTHONY) Phys Exam - Physical Examination Constitutional: NAD HEENT: PERRLA, moist MMs, oral pharynx no lesions Neck: no nodes, no JVD, supple, full ROM Respiratory: no wheezing, no rales, no rhonchi, clear to auscultation bilateral TTP anteriorly around sternum Cardiovascular: RRR, no significant murmur Gastrointestinal: soft, non-tender, positive bowel sounds LUE with edema, mild redness forearm, TTP, not warm Neurological: non-focal, moves all 4 limbs Psychiatric: normal affect, A&O x 3 Dx/Plan (1) STEMI (ST elevation myocardial infarction) Status: Acute Qualifiers: Involved coronary artery: right coronary artery Qualified Code(s): I21.11 - ST elevation (STEMI) myocardial infarction involving right coronary artery Comment: S/p bare metal stent to RCA (2) Cardiac arrest with ventricular fibrillation Code(s): I46.9 - CARDIAC ARREST, CAUSE UNSPECIFIED; I49.01 - VENTRICULAR FIBRILLATION Status: Resolved (3) Superficial thrombophlebitis of left upper extremity Code(s): I80.8 - PHLEBITIS AND THROMBOPHLEBITIS OF OTHER SITES Status: Acute Comment: symptomatic care, basilic and cephalic veins, no deep veins involved (4) Pulmonary embolism on left Code(s): I26.99 - OTHER PULMONARY EMBOLISM WITHOUT ACUTE COR PULMONALE Status : Acute Comment: very small, ANTHONY, will need [address] Huerta (5) CAD (coronary artery disease) Code(s): I25.10 - ATHSCL HEART DISEASE OF [place] CORONARY ARTERY W/O ANG PCTRS Status: Acute Qualifiers: Coronary Disease-Associated Artery/Lesion type: [place] artery - Plan cont current plan of care, PT/OT case mangement consult to look into anticoagulant options * . - Discharge Day Encounter end time: 18:30
[2019-03-15 18:50] LABS: Hemoglobin 13.9 g/dL (14.0-18.0)
[2019-03-15] MEDS ORDERED: Warfarin Sodium 10 MG TAB PO SCH (19:15)
[2019-03-15] MEDS: Amoxicillin/Potassium Clav 875 MG TAB PO SCH (21:16)
[2019-03-15] MEDS: Enoxaparin Sodium 100 MG/ML SYRINGE SC SCH (21:17)
[2019-03-16 05:53] LABS: INR-International Normal Ratio 1.1; Prothrombin Time 13.7 SEC (12.0-14.7)
[2019-03-16] MEDS: Metoprolol Tartrate 25 MG TAB PO SCH ×2 (08:56→20:20)
[2019-03-16] MEDS: Amoxicillin/Potassium Clav 875 MG TAB PO SCH ×2 (08:56→20:19)
[2019-03-16] MEDS: Clopidogrel Bisulfate 75 MG TAB PO SCH (08:56)
[2019-03-16] MEDS: Enoxaparin Sodium 100 MG/ML SYRINGE SC SCH ×2 (08:57→20:19)
[2019-03-16] MEDS: HYDROcodone/Acetaminophen 10/325 mg Tablet PO PRN (09:00)
[2019-03-16] MEDS ORDERED: Furosemide 20 MG/2 ML VIAL SLOW IVP SCH (09:00)
--- NOTE | 2019-03-16 09:29 | EKG ---
Test Reason : Blood Pressure : / mmHG Vent. Rate : 104 BPM Atrial Rate : 104 BPM P-R Int : 124 ms QRS Dur : 132 ms QT Int : 354 ms P-R-T Axes : 053 085 088 degrees QTc Int : 465 ms Demand pacemaker; interpretation is based on intrinsic rhythm Sinus tachycardia with Fusion complexes Non-specific intra-ventricular conduction block ST elevation consider inferolateral injury or acute infarct * ACUTE DE * Abnormal ECG Confirmed by MARY NGO, ZOILA ([id number]), telegraph editor MIKE CAMPOVERDE ([id number]) on 03/16/2019 9:29:26 AM Referred By: Confirmed By:ZOILA HERNANDEZ MD
--- NOTE | 2019-03-16 09:29 | EKG ---
Test Reason : Blood Pressure : / mmHG Vent. Rate : 139 BPM Atrial Rate : 139 BPM P-R Int : 160 ms QRS Dur : 098 ms QT Int : 348 ms P-R-T Axes : 000 090 093 degrees QTc Int : 529 ms Poor data quality, interpretation may be adversely affected Sinus tachycardia Rightward axis ST elevation consider inferolateral injury or acute infarct ACUTE [place] / STEMI Consider right ventricular involvement in acute inferior infarct Abnormal ECG Confirmed by MARY NGO, ZOILA ([id number]), makeup editor MIKE CAMPOVERDE ([id number]) on 03/16/2019 9:29:27 AM Referred By: Confirmed By:ZOILA HERNANDEZ MD
[2019-03-16] MEDS ORDERED: Acetaminophen/Codeine 30-300mg Tablet PO PRN (11:26)
[2019-03-16 13:54] VITALS: BMI 32.1
--- NOTE | 2019-03-16 14:00 | PRG ---
DATE OF SERVICE: 03/16/2019 SERVICE: Pulmonary Medicine. INTERVAL HISTORY: The patient is doing fine from respiratory standpoint. The left upper extremity swelling is actually getting a little bit better. Denies any current fevers, chills, cough, nausea, or vomiting. His breathing is just fine. His strength is improving day-by-day, his family is suggesting that he has essentially returned to baseline at this point. He has no specific complaints otherwise. PHYSICAL EXAMINATION: VITAL SIGNS: Afebrile, pulse 78, blood pressure 127/71, respirations 18, and saturation 97% on room air. GENERAL: The patient is awake and alert, in no apparent distress. LUNGS: Very good air entry. No prolonged expiratory phase or wheezing is present. HEART: Normal rate and regular. ABDOMEN: Soft, nontender, and nondistended. Bowel sounds are positive. MUSCULOSKELETAL: No cyanosis or clubbing. There is 1+ pitting in the left upper extremity. Otherwise, no pitting is present. : No Chiu. NEUROLOGIC: Grossly nonfocal. LABORATORY DATA: INR 1.1. IMAGING STUDIES: Ultrasound of the left upper extremity demonstrates superficial venous thrombosis. CT of the chest demonstrates no abnormalities of the aortic root, or aortic arch. That being said, very small pulmonary embolism is present in the left upper lobe. ASSESSMENT: 1. Acute hypoxic respiratory failure, resolved. 2. ST-elevation myocardial infarction, status post percutaneous coronary intervention of the right coronary artery. 3. Ventricular tachycardia arrest, [id number] with return of circulation and no neurologic sequelae. 4. Coronary artery disease. 5. Superficial venous thrombosis of the left upper extremity. 6. Acute pulmonary embolism, extremely small. DISCUSSION AND PLAN: The PE is small, but it is real. As such, we will commit him to 6 months of anticoagulation. This can be in the form of a direct oral anticoagulant, or Coumadin if we cannot find a direct oral anticoagulant that he can take. Funding is going to be a major issue for him. At this point, he has no further requirements for inpatient Pulmonary or Critical Care opinion, and I will sign off. From a purely respiratory standpoint, he has returned to baseline and can be considered for transition home. Job ID: [id number] [facility]
--- NOTE | 2019-03-16 14:56 | PDOC.PN ---
- Subjective Encounter Start Date: 03/16/19 Encounter Start Time: 14:54 Subjective: feels better.some pain in ribs w cough or deep breaths -: no SOB. - Objective MAR Reviewed: Yes Vital Signs & Weight: Vital Signs (12 hours) Temp Pulse Resp BP BP Pulse Ox 03/16/19 13:57 94 20 03/16/19 12:00 98.0 F 78 18 127/71 97 03/16/19 08:00 97.3 F L 93 18 143/94 H 93 L 03/16/19 07:35 86 20 03/16/19 03:07 98.8 F 84 20 129/84 92 L Weight Admit Weight 254 lb 10.142 oz Weight 243 lb 4.8 oz Most Recent Monitor Data Heart Rate from ECG 95 NIBP 125/89 NIBP BP-Mean 101 Respiration from ECG 22 SpO2 100 I&O: 03/15/19 03/16/19 03/17/19 06:59 06:59 06:59 Intake Total 1920 2120 580 Output Total 575 1825 Balance 1345 295 580 Result Diagrams: 03/15/19 18:34 03/13/19 04:25 Additional Labs: Accuchecks 03/16/19 03/15/19 03/15/19 05:22 21:00 16:46 POC Glucose 85 91 80 Microbiology 03/11/19 23:50 Bronchial Washing - Aspirate Respiratory Culture - Final 03/12/19 04:55 Central Line - Right Common Femoral Vein Blood Culture - Preliminary NO GROWTH AT 48 HOURS 03/12/19 04:35 Central Line - Right Common Femoral Vein Blood Culture - Preliminary NO GROWTH AT 48 HOURS Laboratory Tests 03/13/19 03/15/19 03/15/19 04:25 04:21 18:34 Hgb 15.6 13.0 L 13.9 L INR 03/16/19 05:33 Hgb INR 1.1 Phys Exam - Physical Examination Constitutional: NAD HEENT: PERRLA, moist MMs, sclera anicteric, oral pharynx no lesions subconjuctival hemorrhage due to CPR Neck: no nodes, no JVD, supple, full ROM Respiratory: no wheezing, no rales, no rhonchi, clear to auscultation bilateral Cardiovascular: RRR, no significant murmur, no rub Gastrointestinal: soft, non-tender, no distention, positive bowel sounds Musculoskeletal: no edema, pulses present Neurological: non-focal, normal sensation, moves all 4 limbs Psychiatric: normal affect, A&O x 3 Skin: no rash Dx/Plan (1) Pulmonary embolism on left Code(s): I26.99 - OTHER PULMONARY EMBOLISM WITHOUT ACUTE COR PULMONALE Status : Acute Comment: very small, ANTHONY, will need [address] Huerta. continue Lovenox with Coumadin for bridging Cm to assist w OP coumadin follow up.pt uninsured (2) CAD (coronary artery disease) Code(s): I25.10 - ATHSCL HEART DISEASE OF [place] CORONARY ARTERY W/O ANG PCTRS Status: Acute Qualifiers: Coronary Disease-Associated Artery/Lesion type: [place] artery Comment: s/p STEMI needing RCA stenting (3) STEMI (ST elevation myocardial infarction) Status: Acute Qualifiers: Involved coronary artery: right coronary artery Qualified Code(s): I21.11 - ST elevation (STEMI) myocardial infarction involving right coronary artery Comment: S/p bare metal stent to RCA (4) Superficial thrombophlebitis of left upper extremity Code(s): I80.8 - PHLEBITIS AND THROMBOPHLEBITIS OF OTHER SITES Status: Acute Comment: symptomatic care, basilic and cephalic veins, no deep veins involved (5) Cardiac arrest with ventricular fibrillation Code(s): I46.9 - CARDIAC ARREST, CAUSE UNSPECIFIED; I49.01 - VENTRICULAR FIBRILLATION Status: Resolved - Plan plan discussed w/ family, DVT proph w/SCDs HD stable -: monitor INR.cont both lovenox w couamdin untill INR therapeutic -: HD stable -: IM team will follow. H/H stable * . Review of Systems - Review of Systems Constitutional: weakness, malaise Eyes: Conjunctivae Inflammation Cardiovascular: chest pain. negative: palpitations, orthopnea, paroxysmal nocturnal dyspnea, edema, light headedness, other Genitourinary: negative: Dysuria, Frequency, Incontinence, Hematuria, Retention , Other Musculoskeletal: negative: Neck Pain, Shoulder Pain, Arm Pain, Back Pain, Hand Pain, Leg Pain, Foot Pain, Other Neurological: negative: Weakness, Numbness, Incoordination, Change in Speech, Confusion, Seizures, Other - Medications/Allergies Allergies/Adverse Reactions: Allergies Allergy/AdvReac Type Severity Reaction Status Date / Time NSAIDS (Non-Steroidal Allergy Verified 03/11/19 14:40 Anti-Inflamma Medications: Current Medications Acetaminophen/Codeine Phosphate (Tylenol #3) 1 tab PO Q4H PRN PRN Reason: Moderate Pain (4-6) Albuterol/Ipratropium (Duoneb) 3 ml NEB [id number] [facility] Last Admin: 03/16/19 13:57 Dose: 3 ml Amoxicillin/Clavulanate Potassium (Augmentin) 875 mg PO Q12HR [facility] Stop: 03/18/19 21:01 Last Admin: 03/16/19 08:56 Dose: 875 mg Clopidogrel Bisulfate (Plavix) 75 mg PO DAILY [facility] Last Admin: 03/16/19 08:56 Dose: 75 mg Enoxaparin Sodium (Lovenox) 100 mg SC 0900,2100 [facility] Last Admin: 03/16/19 08:57 Dose: 100 mg Metoprolol Tartrate (Lopressor) 25 mg PO BID [facility] Last Admin: 03/16/19 08:56 Dose: 25 mg Tramadol HCl (Ultram) 50 mg PO Q4H PRN PRN Reason: mild pain Warfarin Sodium (Coumadin) 10 mg PO 1700 [facility]
[2019-03-16] MEDS: Warfarin Sodium 10 MG TAB PO SCH (16:45)
[2019-03-16] MEDS: traMADol HCl 50 MG TAB PO PRN (20:20)
[2019-03-17 05:20] LABS: Hemoglobin 13.6 g/dL (14.0-18.0)
[2019-03-17 05:25] LABS: INR-International Normal Ratio 1.1; Prothrombin Time 14.4 SEC (12.0-14.7)
[2019-03-17 05:46] LABS: ALT (SGPT) 65 U/L (8-55); AST (SGOT) 30 U/L (5-34); Albumin 3.8 g/dL (3.5-5.0); Alkaline Phosphatase 45 U/L (40-150); Anion Gap 14 mmol/L (10-20); BUN (Urea Nitrogen) 20 mg/dL (8.9-20.6); Bilirubin, Total 0.7 mg/dL (0.2-1.2); Calc. Creatinine Clearance 203 mL/min (70-130); Calcium 9.2 mg/dL (7.8-10.44); Carbon Dioxide 23 mmol/L (22-29); Chloride 102 mmol/L (98-107); Estimated GFR-MDRD Greater than 90; Glucose 85 mg/dL (70-105); Potassium 3.5 mmol/L (3.5-5.1); Protein, Total 6.8 g/dL (6.0-8.3); Sodium 135 mmol/L (136-145)
[2019-03-17] MEDS: Metoprolol Tartrate 25 MG TAB PO SCH ×2 (08:23→21:25)
[2019-03-17] MEDS: Amoxicillin/Potassium Clav 875 MG TAB PO SCH ×2 (08:23→21:25)
[2019-03-17] MEDS: Clopidogrel Bisulfate 75 MG TAB PO SCH (08:23)
[2019-03-17] MEDS: Enoxaparin Sodium 100 MG/ML SYRINGE SC SCH ×2 (08:23→21:26)
[2019-03-17] MEDS: traMADol HCl 50 MG TAB PO PRN (09:59)
--- NOTE | 2019-03-17 14:33 | PDOC.PN ---
- Subjective Encounter Start Date: 03/17/19 Encounter Start Time: 10:30 Subjective: pt up in chair no complains - Objective Vital Signs & Weight: Vital Signs (12 hours) Temp Pulse Resp BP Pulse Ox 03/17/19 11:39 97.7 F 83 17 136/81 95 03/17/19 07:50 80 16 93 L 03/17/19 07:26 98.1 F 85 17 134/86 93 L 03/17/19 03:11 98.5 F 91 18 141/87 H 93 L Weight Admit Weight 254 lb 10.142 oz Weight 241 lb 8 oz Most Recent Monitor Data Heart Rate from ECG 95 NIBP 125/89 NIBP BP-Mean 101 Respiration from ECG 22 SpO2 100 I&O: 03/16/19 03/17/19 03/18/19 06:59 06:59 06:59 Intake Total 2120 1180 Output Total 1825 1850 Balance 295 -670 Result Diagrams: 03/17/19 04:22 03/17/19 04:22 Additional Labs: Accuchecks 03/17/19 05:22 POC Glucose 82 Phys Exam - Physical Examination subconjuntival hemorrhage Neck: no nodes, no JVD, supple, full ROM Respiratory: no wheezing, no rales, no rhonchi, wheezing present, clear to auscultation bilateral Cardiovascular: RRR, no significant murmur, no rub, gallop, irregular Gastrointestinal: soft, non-tender, no distention, positive bowel sounds Dx/Plan (1) Pulmonary embolism on left Code(s): I26.99 - OTHER PULMONARY EMBOLISM WITHOUT ACUTE COR PULMONALE Status : Acute Comment: very small, ANTHONY, will need [address] Huerta. continue Lovenox with Coumadin for bridging Cm to assist w OP coumadin follow up.pt uninsured (2) CAD (coronary artery disease) Code(s): I25.10 - ATHSCL HEART DISEASE OF [place] CORONARY ARTERY W/O ANG PCTRS Status: Acute Qualifiers: Coronary Disease-Associated Artery/Lesion type: [place] artery Comment: s/p STEMI needing RCA stenting (3) STEMI (ST elevation myocardial infarction) Status: Acute Qualifiers: Involved coronary artery: right coronary artery Qualified Code(s): I21.11 - ST elevation (STEMI) myocardial infarction involving right coronary artery Comment: S/p bare metal stent to RCA (4) Superficial thrombophlebitis of left upper extremity Code(s): I80.8 - PHLEBITIS AND THROMBOPHLEBITIS OF OTHER SITES Status: Acute Comment: symptomatic care, basilic and cephalic veins, no deep veins involved (5) Cardiac arrest with ventricular fibrillation Code(s): I46.9 - CARDIAC ARREST, CAUSE UNSPECIFIED; I49.01 - VENTRICULAR FIBRILLATION Status: Resolved - Plan pt on lovonox and coumadin. -: s/p stent bare metal stent to RCA -: superficial dvt with small PE * . Review of Systems - Review of Systems Respiratory: negative: Cough, Dry, Shortness of Breath, Hemoptysis, SOB with Excertion, Pleuritic Pain, Sputum, Wheezing Cardiovascular: negative: chest pain, palpitations, orthopnea, paroxysmal nocturnal dyspnea, edema, light headedness, other Gastrointestinal: negative: Nausea, Vomiting, Abdominal Pain, Diarrhea, Constipation, Melena, Hematochezia, Other - Medications/Allergies Allergies/Adverse Reactions: Allergies Allergy/AdvReac Type Severity Reaction Status Date / Time NSAIDS (Non-Steroidal Allergy Verified 03/11/19 14:40 Anti-Inflamma Medications: Current Medications Acetaminophen/Codeine Phosphate (Tylenol #3) 1 tab PO Q4H PRN PRN Reason: Moderate Pain (4-6) Albuterol/Ipratropium (Duoneb) 3 ml NEB [id number] [facility] Last Admin: 03/17/19 07:50 Dose: 3 ml Amoxicillin/Clavulanate Potassium (Augmentin) 875 mg PO Q12HR [facility] Stop: 03/18/19 21:01 Last Admin: 03/17/19 08:23 Dose: 875 mg Clopidogrel Bisulfate (Plavix) 75 mg PO DAILY [facility] Last Admin: 03/17/19 08:23 Dose: 75 mg Enoxaparin Sodium (Lovenox) 100 mg SC 0900,2100 [facility] Last Admin: 03/17/19 08:23 Dose: 100 mg Metoprolol Tartrate (Lopressor) 25 mg PO BID [facility] Last Admin: 03/17/19 08:23 Dose: 25 mg Tramadol HCl (Ultram) 50 mg PO Q4H PRN PRN Reason: mild pain Last Admin: 03/17/19 09:59 Dose: 50 mg Warfarin Sodium (Coumadin) 10 mg PO 1700 [facility] Last Admin: 03/16/19 16:45 Dose: 10 mg
[2019-03-17] MEDS: Warfarin Sodium 10 MG TAB PO SCH (16:57)
--- NOTE | 2019-03-17 17:37 | PDOC.CTH ---
Cardiology Progress Note - Subjective He is doing well. No new issues. No chest pain. - Objective Vital Signs Temp Pulse Pulse Pulse Resp BP BP 03/17/19 15:31 97.3 F L 91 18 03/17/19 14:35 74 16 03/17/19 14:11 89 83 139/89 134/86 03/17/19 11:39 97.7 F 83 17 03/17/19 07:50 80 16 03/17/19 07:26 98.1 F 85 17 BP Pulse Ox Pulse Ox Pulse Ox 03/17/19 15:31 139/81 92 L 03/17/19 14:35 03/17/19 14:11 95 94 L 03/17/19 11:39 136/81 95 03/17/19 07:50 93 L 03/17/19 07:26 134/86 93 L Admit Weight 254 lb 10.142 oz Weight 241 lb 8 oz 03/16/19 03/17/19 03/18/19 06:59 06:59 06:59 Intake Total 2120 1180 Output Total 1825 1850 Balance 295 -670 - Physical Examination General/Neuro: alert & oriented x3, NAD Neck: no JVD present Lungs: CTA, unlabored respirations Heart: RRR Abdomen: NT/ND Extremities: other: (no edema) - Telemetry Telemetry Rhythm: NSR - Labs Result Diagrams: 03/17/19 04:22 03/17/19 04:22 Troponin/CKMB CK-MB (CK-2) 304.8 ng/mL (0-6.6) H* 03/12/19 12:22 Troponin I 63.445 ng/mL (< 0.028) H* 03/12/19 12:22 - Assessment/Plan 1. Inferopesterior STEMI. 2. PATRICIA to RCA 3. V-Fib arrest 4. Hyperlipidemia, 5. Shocked liver 6. NSIAD allergy 7. Left cephalic vein and basilic vein thrombosis, (NO DVT) 8. Small Acute PE. PLAN: - Will start high dose lipitor as LFT's much much better. - Continue Lovenox/warfarin - Pharmacy to modify coumadin dose.
[2019-03-17] MEDS: Atorvastatin Calcium 40 MG TAB PO SCH (21:26)
[2019-03-18] MEDS: Amoxicillin/Potassium Clav 875 MG TAB PO SCH ×2 (08:27→21:42)
[2019-03-18] MEDS: Enoxaparin Sodium 100 MG/ML SYRINGE SC SCH ×2 (08:27→21:45)
[2019-03-18] MEDS: Clopidogrel Bisulfate 75 MG TAB PO SCH (08:27)
[2019-03-18] MEDS: Metoprolol Tartrate 25 MG TAB PO SCH ×2 (08:28→21:43)
[2019-03-18 09:21] LABS: INR-International Normal Ratio 1.3; Prothrombin Time 16.5 SEC (12.0-14.7)
--- NOTE | 2019-03-18 12:47 | PDOC.PN ---
- Subjective Encounter Start Date: 03/18/19 Encounter Start Time: 10:15 Subjective: pt up in bed no complains - Objective Vital Signs & Weight: Vital Signs (12 hours) Temp Pulse Resp BP Pulse Ox 03/18/19 11:30 97.7 F 88 19 140/86 93 L 03/18/19 07:56 78 16 94 L 03/18/19 07:09 98.4 F 82 17 137/84 92 L 03/18/19 04:00 98.3 F 76 14 139/77 93 L Weight Admit Weight 254 lb 10.142 oz Weight 235 lb 8 oz Most Recent Monitor Data Heart Rate from ECG 95 NIBP 125/89 NIBP BP-Mean 101 Respiration from ECG 22 SpO2 100 I&O: 03/17/19 03/18/19 03/19/19 06:59 06:59 06:59 Intake Total 1180 1450 Output Total 1850 2150 Balance -670 -700 Result Diagrams: 03/17/19 04:22 03/17/19 04:22 Phys Exam - Physical Examination Neck: no nodes, no JVD, supple, full ROM Respiratory: no wheezing, no rales, no rhonchi, wheezing present, clear to auscultation bilateral Cardiovascular: RRR, no significant murmur, no rub, gallop, irregular Gastrointestinal: soft, non-tender, no distention, positive bowel sounds Dx/Plan (1) Pulmonary embolism on left Code(s): I26.99 - OTHER PULMONARY EMBOLISM WITHOUT ACUTE COR PULMONALE Status : Acute Comment: very small, ANTHONY, will need [address] Huerta. continue Lovenox with Coumadin for bridging Cm to assist w OP coumadin follow up.pt uninsured (2) CAD (coronary artery disease) Code(s): I25.10 - ATHSCL HEART DISEASE OF [place] CORONARY ARTERY W/O ANG PCTRS Status: Acute Qualifiers: Coronary Disease-Associated Artery/Lesion type: [place] artery Comment: s/p STEMI needing RCA stenting (3) STEMI (ST elevation myocardial infarction) Status: Acute Qualifiers: Involved coronary artery: right coronary artery Qualified Code(s): I21.11 - ST elevation (STEMI) myocardial infarction involving right coronary artery Comment: S/p bare metal stent to RCA (4) Superficial thrombophlebitis of left upper extremity Code(s): I80.8 - PHLEBITIS AND THROMBOPHLEBITIS OF OTHER SITES Status: Acute Comment: symptomatic care, basilic and cephalic veins, no deep veins involved (5) Cardiac arrest with ventricular fibrillation Code(s): I46.9 - CARDIAC ARREST, CAUSE UNSPECIFIED; I49.01 - VENTRICULAR FIBRILLATION Status: Resolved - Plan will continue comadin inr has to be between 2-3 -: pt on asa/plavix/statin, medically stable to discharge -: encouraged to walk -: avoidable day #1 * . Review of Systems - Review of Systems Respiratory: negative: Cough, Dry, Shortness of Breath, Hemoptysis, SOB with Excertion, Pleuritic Pain, Sputum, Wheezing Cardiovascular: negative: chest pain, palpitations, orthopnea, paroxysmal nocturnal dyspnea, edema, light headedness, other Gastrointestinal: negative: Nausea, Vomiting, Abdominal Pain, Diarrhea, Constipation, Melena, Hematochezia, Other - Medications/Allergies Allergies/Adverse Reactions: Allergies Allergy/AdvReac Type Severity Reaction Status Date / Time NSAIDS (Non-Steroidal Allergy Verified 03/11/19 14:40 Anti-Inflamma Medications: Current Medications Acetaminophen/Codeine Phosphate (Tylenol #3) 1 tab PO Q4H PRN PRN Reason: Moderate Pain (4-6) Last Admin: 03/17/19 22:51 Dose: 1 tab Albuterol/Ipratropium (Duoneb) 3 ml NEB [id number] [facility] Last Admin: 03/18/19 07:56 Dose: 3 ml Amoxicillin/Clavulanate Potassium (Augmentin) 875 mg PO Q12HR [facility] Stop: 03/18/19 21:01 Last Admin: 03/18/19 08:27 Dose: 875 mg Atorvastatin Calcium (Lipitor) 80 mg PO HS [facility] Last Admin: 03/17/19 21:26 Dose: 80 mg Clopidogrel Bisulfate (Plavix) 75 mg PO DAILY [facility] Last Admin: 03/18/19 08:27 Dose: 75 mg Enoxaparin Sodium (Lovenox) 100 mg SC 0900,2100 [facility] Last Admin: 03/18/19 08:27 Dose: 100 mg Metoprolol Tartrate (Lopressor) 25 mg PO BID [facility] Last Admin: 03/18/19 08:28 Dose: 25 mg Miscellaneous Medication (Pharmacy To Dose) 1 each PO PRN PRN PRN Reason: Pharmacy to dose Tramadol HCl (Ultram) 50 mg PO Q4H PRN PRN Reason: mild pain Last Admin: 03/17/19 09:59 Dose: 50 mg Warfarin Sodium (Coumadin) 15 mg PO 1700 [facility]
--- NOTE | 2019-03-18 14:59 | PDOC.CTH ---
Cardiology Progress Note - Subjective No new issues. - Objective Vital Signs Temp Pulse Resp BP Pulse Ox 03/18/19 13:05 87 16 96 03/18/19 11:30 97.7 F 88 19 140/86 93 L 03/18/19 07:56 78 16 94 L 03/18/19 07:09 98.4 F 82 17 137/84 92 L 03/18/19 04:00 98.3 F 76 14 139/77 93 L Admit Weight 254 lb 10.142 oz Weight 235 lb 8 oz 03/17/19 03/18/19 03/19/19 06:59 06:59 06:59 Intake Total 1180 1450 Output Total 1850 2150 Balance -670 -700 - Physical Examination General/Neuro: alert & oriented x3, NAD Neck: no JVD present Lungs: CTA, unlabored respirations Heart: RRR Abdomen: NT/ND Extremities: other: (no edema) - Telemetry Telemetry Rhythm: NSR - Labs Result Diagrams: 03/17/19 04:22 03/17/19 04:22 Troponin/CKMB CK-MB (CK-2) 304.8 ng/mL (0-6.6) H* 03/12/19 12:22 Troponin I 63.445 ng/mL (< 0.028) H* 03/12/19 12:22 - Assessment/Plan 1. Inferopesterior STEMI. 2. PATRICIA to RCA 3. V-Fib arrest 4. Hyperlipidemia, 5. Shocked liver 6. NSIAD allergy 7. Left cephalic vein and basilic vein thrombosis, (NO DVT) 8. Small Acute PE. PLAN: - Continue statin. - Continue Lovenox/warfarin INR at 1.3 - Pharmacy to modify coumadin dose.
[2019-03-18] MEDS: Warfarin Sodium 7.5 MG TAB PO SCH (16:16)
[2019-03-18] MEDS ORDERED: Sodium Chloride 0.9% 10 ML ONE (20:23)
[2019-03-18] MEDS: Atorvastatin Calcium 40 MG TAB PO SCH (21:42)
[2019-03-18] MEDS: traMADol HCl 50 MG TAB PO PRN (21:43)
[2019-03-19 05:45] LABS: INR-International Normal Ratio 1.7; Prothrombin Time 20.1 SEC (12.0-14.7)
[2019-03-19] MEDS: Clopidogrel Bisulfate 75 MG TAB PO SCH (09:17)
[2019-03-19] MEDS: Metoprolol Tartrate 25 MG TAB PO SCH (09:17)
[2019-03-19] MEDS: Enoxaparin Sodium 100 MG/ML SYRINGE SC SCH ×2 (09:17→19:44)
--- NOTE | 2019-03-19 13:41 | PDOC.PN ---
- Subjective Encounter Start Date: 03/19/19 Encounter Start Time: 10:30 Subjective: pt up in bed no complains - Objective Vital Signs & Weight: Vital Signs (12 hours) Temp Pulse Resp BP BP Pulse Ox 03/19/19 12:00 97.8 F 84 18 137/85 95 03/19/19 07:35 98.3 F 88 19 139/80 94 L 03/19/19 07:22 90 14 03/19/19 03:24 98.4 F 92 18 113/64 93 L Weight Admit Weight 254 lb 10.142 oz Weight 234 lb 3.2 oz Most Recent Monitor Data Heart Rate from ECG 95 NIBP 125/89 NIBP BP-Mean 101 Respiration from ECG 22 SpO2 100 I&O: 03/18/19 03/19/19 03/20/19 06:59 06:59 06:59 Intake Total 1450 2150 Output Total 2150 1400 Balance -700 750 Result Diagrams: 03/17/19 04:22 03/17/19 04:22 Phys Exam - Physical Examination Neck: no nodes, no JVD, supple, full ROM Respiratory: no wheezing, no rales, no rhonchi, clear to auscultation bilateral Cardiovascular: RRR, no significant murmur, no rub, gallop, irregular Dx/Plan (1) Pulmonary embolism on left Code(s): I26.99 - OTHER PULMONARY EMBOLISM WITHOUT ACUTE COR PULMONALE Status : Acute Comment: very small, ANTHONY, will need [address] Huerta. continue Lovenox with Coumadin for bridging Cm to assist w OP coumadin follow up.pt uninsured (2) CAD (coronary artery disease) Code(s): I25.10 - ATHSCL HEART DISEASE OF [place] CORONARY ARTERY W/O ANG PCTRS Status: Acute Qualifiers: Coronary Disease-Associated Artery/Lesion type: [place] artery Comment: s/p STEMI needing RCA stenting (3) STEMI (ST elevation myocardial infarction) Status: Acute Qualifiers: Involved coronary artery: right coronary artery Qualified Code(s): I21.11 - ST elevation (STEMI) myocardial infarction involving right coronary artery Comment: S/p bare metal stent to RCA (4) Superficial thrombophlebitis of left upper extremity Code(s): I80.8 - PHLEBITIS AND THROMBOPHLEBITIS OF OTHER SITES Status: Acute Comment: symptomatic care, basilic and cephalic veins, no deep veins involved (5) Cardiac arrest with ventricular fibrillation Code(s): I46.9 - CARDIAC ARREST, CAUSE UNSPECIFIED; I49.01 - VENTRICULAR FIBRILLATION Status: Resolved - Plan pt's inr is 1.7, if inr 2.0 may be discharged in am -: will continue plavix * . Review of Systems - Review of Systems Respiratory: negative: Cough, Dry, Shortness of Breath, Hemoptysis, SOB with Excertion, Pleuritic Pain, Sputum, Wheezing Cardiovascular: negative: chest pain, palpitations, orthopnea, paroxysmal nocturnal dyspnea, edema, light headedness, other - Medications/Allergies Allergies/Adverse Reactions: Allergies Allergy/AdvReac Type Severity Reaction Status Date / Time NSAIDS (Non-Steroidal Allergy Verified 03/11/19 14:40 Anti-Inflamma Medications: Current Medications Acetaminophen/Codeine Phosphate (Tylenol #3) 1 tab PO Q4H PRN PRN Reason: Moderate Pain (4-6) Last Admin: 03/17/19 22:51 Dose: 1 tab Albuterol/Ipratropium (Duoneb) 3 ml NEB [id number] [facility] Last Admin: 03/19/19 07:22 Dose: 3 ml Atorvastatin Calcium (Lipitor) 80 mg PO HS [facility] Last Admin: 03/18/19 21:42 Dose: 80 mg Clopidogrel Bisulfate (Plavix) 75 mg PO DAILY [facility] Last Admin: 03/19/19 09:17 Dose: 75 mg Ezetimibe (Zetia) 10 mg PO DAILY [facility] Enoxaparin Sodium (Lovenox) 100 mg SC 0900,2100 [facility] Last Admin: 03/19/19 09:17 Dose: 100 mg Metoprolol Tartrate (Lopressor) 25 mg PO BID [facility] Last Admin: 03/19/19 09:17 Dose: 25 mg Miscellaneous Medication (Pharmacy To Dose) 1 each PO PRN PRN PRN Reason: Pharmacy to dose Tramadol HCl (Ultram) 50 mg PO Q4H PRN PRN Reason: mild pain Last Admin: 03/18/19 21:43 Dose: 50 mg Warfarin Sodium (Coumadin) 15 mg PO 1700 [facility] Last Admin: 03/18/19 16:16 Dose: 15 mg
[2019-03-19] MEDS: Warfarin Sodium 7.5 MG TAB PO SCH (18:42)
[2019-03-19] MEDS: Atorvastatin Calcium 40 MG TAB PO SCH (19:43)
[2019-03-19] MEDS: Metoprolol Tartrate 50 MG TAB PO SCH (19:44)
[2019-03-20 05:19] LABS: INR-International Normal Ratio 1.9; Prothrombin Time 21.4 SEC (12.0-14.7)
[2019-03-20 05:37] LABS: ALT (SGPT) 86 U/L (8-55); AST (SGOT) 32 U/L (5-34); Albumin 4.4 g/dL (3.5-5.0); Alkaline Phosphatase 64 U/L (40-150); Anion Gap 14 mmol/L (10-20); BUN (Urea Nitrogen) 19 mg/dL (8.9-20.6); Bilirubin, Total 0.6 mg/dL (0.2-1.2); Calc. Creatinine Clearance 155 mL/min (70-130); Calcium 10.3 mg/dL (7.8-10.44); Carbon Dioxide 24 mmol/L (22-29); Chloride 101 mmol/L (98-107); Estimated GFR-MDRD 88; Globulin 3.4 g/dL (2.4-3.5); Glucose 89 mg/dL (70-105); Potassium 4.4 mmol/L (3.5-5.1); Protein, Total 7.8 g/dL (6.0-8.3); Sodium 135 mmol/L (136-145)
[2019-03-20] MEDS ORDERED: Ezetimibe 10 MG TAB PO SCH (09:00)
[2019-03-20] MEDS: Metoprolol Tartrate 50 MG TAB PO SCH (09:11)
[2019-03-20] MEDS: Clopidogrel Bisulfate 75 MG TAB PO SCH (09:11)
[2019-03-20] MEDS: Enoxaparin Sodium 100 MG/ML SYRINGE SC SCH (09:11)
[2019-03-20 11:29] VITALS: BP 130/87; TEMP 98.2
--- NOTE | 2019-03-20 18:11 | DIS ---
DATE OF ADMISSION: 03/11/2019 DATE OF DISCHARGE: 03/20/2019 DISCHARGE DIAGNOSES: 1. Chest pain, most likely secondary to an inferoposterior ST-elevation myocardial infarction. 2. Ventricular fibrillation cardiac arrest, status post CPR, returned to spontaneous circulation. 3. Pulmonary embolism secondary to superficial venous thrombosis of the left upper extremity. HOSPITAL COURSE: The patient is a very pleasant 39-year-old male, who presented to the hospital, initially had chest pain at home, underwent a round of CPR that was done by his family member, was brought in and was found to be in VFib arrest. At this time, the EMS, when arrived on the scene, gave two rounds of epinephrine, continued CPR, and after the 3rd shock, he returned to sinus rhythm. The patient was intubated and was brought into the hospital for further evaluation. The patient was seen by Cardiology. His EKG revealed [address]-segment elevation in leads II, III, and aVF as well as [address] depression in V3, V4. At this time, he was taken to the seed analysis laboratory assistant, and the patient underwent successful bare-metal stent to the right posterolateral coronary. He also was found to be in atrial fibrillation and was cardioverted with 100 joules to sinus tachycardia. The patient had a 70% stenosis to the LAD, 30% stenosis to the left circumflex, and 100% stenosis to the RCA. The patient continued to improve through the whole hospital stay. He did have a Doppler of his left upper extremity due to swelling, which did indicate an area of occlusive thrombus in addition to areas of nonocclusive thrombus involving the left upper extremity cephalic and basilic veins, which are superficial veins. No DVT was noted to the deep structures. At this time, he also had a CTA, which indicated a small bilateral pleural effusion and also findings suspicious of small pulmonary embolism to the left upper lobe. The patient at this time was put on anticoagulation, and he continued to improve throughout the hospital stay. He did have an echocardiogram, which indicated an EF of 40% to 45%, this was post catheterization with hypokinetic motion of the inferoposterior wall. The patient continued to improve through the hospital stay. He was then discharged home. He will follow up with his property and supply officer and also PCP at [facility]. HOME MEDICATIONS: His home medications will be 1. Atorvastatin 80 mg q.h.s. 2. Clopidogrel 75 mg daily. 3. Zetia 10 mg daily. 4. Metoprolol 50 mg b.i.d. 5. Warfarin 15 mg daily. We will check the INR tomorrow and also on Tuesday. PHYSICAL EXAMINATION: VITAL SIGNS: As of the following; temperature of 98.2, heart rate 80, respiratory rate 17, oxygen saturation 95% on room air, and blood pressure 130/87. GENERAL: He is awake, alert, and oriented x3. Does not appear in distress. CV: S1 and S2 present. No murmurs, rubs, or gallops. ABDOMEN: Soft and nontender. Bowel sounds are present x2. EXTREMITIES: No edema. Again, he will be discharged home. He will follow up with his primary and also with Cardiology. Job ID: [id number]
== END 2019-03-20 15:00 | disposition home or self-care (01) | DRG 248 ==
LOC: ERS 14:15 → EDBD 14:15 → CCU 14:50 → CCL 14:53 → CCU 15:47 → 2NO 03-15 10:55
PROVIDERS: ADMIT Internal Medicine Cardiovascular Disease; ATTEND Internal Medicine Cardiovascular Disease
PROC: 02703DZ Dilation of Coronary Artery, One Artery with Intraluminal Device, Percutaneous Approach (ICD-10-PCS; principal; 2019-03-11)
PROC: 4A023N7 Measurement of Cardiac Sampling and Pressure, Left Heart, Percutaneous Approach (ICD-10-PCS; 2019-03-11)
PROC: B2111ZZ Fluoroscopy of Multiple Coronary Arteries using Low Osmolar Contrast (ICD-10-PCS; 2019-03-11)
PROC: 5A12012 Performance of Cardiac Output, Single, Manual (ICD-10-PCS; 2019-03-11)
DX: I21.11 ST elevation (STEMI) myocardial infarction involving right coronary artery (principal); I49.01 Ventricular fibrillation; J96.01 Acute respiratory failure with hypoxia; K72.00 Acute and subacute hepatic failure without coma; G93.41 Metabolic encephalopathy; I46.2 Cardiac arrest due to underlying cardiac condition; I26.99 Other pulmonary embolism without acute cor pulmonale; N17.9 Acute kidney failure, unspecified; I82.612 Acute embolism and thrombosis of superficial veins of left upper extremity; G93.1 Anoxic brain damage, not elsewhere classified; I48.91 Unspecified atrial fibrillation; E66.9 Obesity, unspecified; J45.909 Unspecified asthma, uncomplicated; E11.9 Type 2 diabetes mellitus without complications; I25.10 Atherosclerotic heart disease of native coronary artery without angina pectoris; I80.8 Phlebitis and thrombophlebitis of other sites; Z88.8 Allergy status to other drugs, medicaments and biological substances; Z68.30 Body mass index [BMI] 30.0-30.9, adult
CPT/HCPCS: 31500; 36415; 36416; 51702; 71045; 71275; 80053; 80061; 81003; 81015; 82550; 82553; 82805; 83036; 83605; 83735; 83880; 84100; 84443; 84484; 85007; 85014; 85018; 85025; 85027; 85347; 85610; 85730; 87040; 87070; 87205; 92928; 92960; 93005; 93010; 93306; 93454; 93798; 94002; 94003; 94640; 94760; 96374; 96375; 96376; A4216; C1725; C1769; C1874; C1887; C9600; J0131; J0282; J1644; J1650; J1815; J1940; J2060; J2270; J2543; J2704; J3010; J3480; J3490; J7050; J7070; J7620; Q9967; S0028

== ENCOUNTER 2019-05-19 22:13 | Emergency (ER) | payer SELFPAY ==
[2019-05-19 22:39] LABS: Bilirubin Small (Negative); Blood, Urine Large (Negative); Glucose, Urine (Dipstick) Negative (Negative); Leukocyte Negative (Negative); Nitrite Negative (Negative); Protein, Urine (Dipstick) 100 mg/dL (Neg-Trace); Urobilinogen 0.2 mg/dL (Less than 2)
[2019-05-19 22:48] LABS: Clarity Turbid (Clear)
[2019-05-19 22:51] LABS: RBC/HPF Greater than 50 HPF (0-3); WBC/HPF 0-3 HPF (0-3)
[2019-05-19 22:52] LABS: Bacteria/HPF Rare-Few HPF (None Seen); Squamous Epithelial 0-3 HPF (0-3)
[2019-05-19 23:15] LABS: #Basophils 0.1 thou/uL (0.0-0.2); #Eosinphils 0.1 thou/uL (0.0-0.7); #Lymphocytes 1.9 thou/uL (1.20-3.40); #Monocytes 0.4 thou/uL (0.11-0.59); #Neutrophils 3.6 thou/uL (1.40-6.50); %Eosinophils 0.9 % (0.0-10.0); %Lymphocytes 32.1 % (21.0-51.0); %Monocytes 6.7 % (0.0-10.0); %Neutrophils 59.3 % (42.0-75.0); Hemoglobin 15.1 g/dL (14.0-18.0); Mean Corpuscular HGB CONC 34.7 g/dL (32.0-36.0); Mean Corpuscular Hemoglobin 29.2 pg (27.0-31.0); Mean Corpuscular Volume 84.3 fL (78.0-98.0); Mean Platelet Volume 9.5 fL (7.4-10.4); Platelet Count 152 thou/uL (130-400); RBC Distribution Width 12.7 % (11.5-14.5); Red Blood Cell (RBC) Count 5.16 mill/uL (4.70-6.10)
[2019-05-19 23:26] LABS: ALT (SGPT) 25 U/L (8-55); AST (SGOT) 15 U/L (5-34); Albumin 4.6 g/dL (3.5-5.0); Alkaline Phosphatase 64 U/L (40-150); Anion Gap 11 mmol/L (10-20); BUN (Urea Nitrogen) 18 mg/dL (8.9-20.6); Bilirubin, Total 0.4 mg/dL (0.2-1.2); Calc. Creatinine Clearance 0 mL/min (70-130); Calcium 9.4 mg/dL (7.8-10.44); Carbon Dioxide 23 mmol/L (22-29); Chloride 107 mmol/L (98-107); Estimated GFR-MDRD Greater than 90; Globulin 2.7 g/dL (2.4-3.5); Glucose 124 mg/dL (70-105); Lipase 17 U/L (8-78); Potassium 3.5 mmol/L (3.5-5.1); Protein, Total 7.3 g/dL (6.0-8.3); Sodium 137 mmol/L (136-145)
[2019-05-19 23:31] LABS: PTT 61.6 SEC (22.9-36.1); Prothrombin Time 30.8 SEC (12.0-14.7)
== END 2019-05-20 00:20 | disposition home or self-care (01) ==
LOC: ERS 22:13
DX: R31.9 Hematuria, unspecified (principal); E11.9 Type 2 diabetes mellitus without complications; J45.909 Unspecified asthma, uncomplicated; I25.2 Old myocardial infarction; Z79.01 Long term (current) use of anticoagulants; Z79.899 Other long term (current) drug therapy
CPT/HCPCS: 36415; 80053; 81003; 81015; 83690; 85025; 85610; 85730; 99283

== ENCOUNTER 2019-06-25 21:27 | Observation (INO) | payer SELFPAY ==
--- NOTE | 2019-06-25 21:53 | RAD ---
XR Chest 1 View Portable History: Chest pain Comparison: Chest radiograph March 12, 2019 Findings: Lungs are clear. No pneumothorax or effusion. Cardiac silhouette and mediastinal contours a re within normal limits. Impression: No acute intrathoracic abnormality.
[2019-06-25 23:21] LABS: #Basophils 0.1 thou/uL (0.0-0.2); #Eosinphils 0.1 thou/uL (0.0-0.7); #Lymphocytes 2.5 thou/uL (1.20-3.40); #Monocytes 0.4 thou/uL (0.11-0.59); #Neutrophils 3.8 thou/uL (1.40-6.50); %Basophils 1.3 % (0.0-1.0); %Eosinophils 0.9 % (0.0-10.0); %Lymphocytes 36.1 % (21.0-51.0); %Monocytes 6.1 % (0.0-10.0); %Neutrophils 55.6 % (42.0-75.0); Hemoglobin 16.2 g/dL (14.0-18.0); Mean Corpuscular HGB CONC 34.6 g/dL (32.0-36.0); Mean Corpuscular Hemoglobin 29.4 pg (27.0-31.0); Mean Corpuscular Volume 84.8 fL (78.0-98.0); Mean Platelet Volume 9.7 fL (7.4-10.4); Platelet Count 159 thou/uL (130-400); RBC Distribution Width 12.6 % (11.5-14.5); White Blood Cell (WBC) Count 6.9 thou/uL (4.8-10.8)
[2019-06-25 23:36] LABS: INR-International Normal Ratio 1.7; Prothrombin Time 19.8 SEC (12.0-14.7)
[2019-06-25 23:37] LABS: PTT 36.8 SEC (22.9-36.1)
[2019-06-25 23:39] LABS: D-Dimer Test Less than 0.27 *mcg/mL (0.27-0.43)
[2019-06-25 23:45] LABS: ALT (SGPT) 24 U/L (8-55); AST (SGOT) 14 U/L (5-34); Albumin 4.7 g/dL (3.5-5.0); Alkaline Phosphatase 53 U/L (40-110); Anion Gap 13 mmol/L (10-20); BUN (Urea Nitrogen) 24 mg/dL (8.9-20.6); Bilirubin, Total 0.5 mg/dL (0.2-1.2); Calc. Creatinine Clearance 0 mL/min (70-130); Calcium 9.4 mg/dL (7.8-10.44); Carbon Dioxide 22 mmol/L (22-29); Chloride 105 mmol/L (98-107); Estimated GFR-MDRD Greater than 90; Globulin 2.9 g/dL (2.4-3.5); Glucose 83 mg/dL (70-105); Lipase 23 U/L (8-78); Potassium 3.5 mmol/L (3.5-5.1); Protein, Total 7.6 g/dL (6.0-8.3); Sodium 136 mmol/L (136-145)
[2019-06-26 02:45] LABS: Troponin I Less than 0.010 ng/mL (< 0.028)
[2019-06-26 06:24] LABS: Troponin I Less than 0.010 ng/mL (< 0.028)
[2019-06-26 08:09] LABS: #Basophils 0.1 thou/uL (0.0-0.2); #Eosinphils 0.1 thou/uL (0.0-0.7); #Lymphocytes 2.2 thou/uL (1.20-3.40); #Monocytes 0.4 thou/uL (0.11-0.59); #Neutrophils 3.7 thou/uL (1.40-6.50); %Basophils 1.3 % (0.0-1.0); %Eosinophils 1.1 % (0.0-10.0); %Lymphocytes 34.5 % (21.0-51.0); %Monocytes 6.1 % (0.0-10.0); Hemoglobin 16.3 g/dL (14.0-18.0); Mean Corpuscular HGB CONC 33.8 g/dL (32.0-36.0); Mean Corpuscular Hemoglobin 28.5 pg (27.0-31.0); Mean Corpuscular Volume 84.3 fL (78.0-98.0); Mean Platelet Volume 9.6 fL (7.4-10.4); Platelet Count 137 thou/uL (130-400); RBC Distribution Width 12.5 % (11.5-14.5); Red Blood Cell (RBC) Count 5.72 mill/uL (4.70-6.10); White Blood Cell (WBC) Count 6.5 thou/uL (4.8-10.8)
[2019-06-26] MEDS ORDERED: Acetaminophen 650 MG Suppository PR PRN (08:29)
[2019-06-26] MEDS ORDERED: Ondansetron ODT 4 MG TAB PO PRN (08:29)
[2019-06-26] MEDS ORDERED: Ondansetron PF 4 MG/2 ML Vial IVP PRN (08:29)
[2019-06-26] MEDS ORDERED: Acetaminophen 325 MG TAB PO PRN (08:29)
[2019-06-26] MEDS ORDERED: Sodium Chloride 0.9% 1,000 ML IV SCH (08:30)
[2019-06-26 08:32] LABS: Anion Gap 12 mmol/L (10-20); BUN (Urea Nitrogen) 18 mg/dL (8.9-20.6); Calc. Creatinine Clearance 0 mL/min (70-130); Calcium 9.3 mg/dL (7.8-10.44); Carbon Dioxide 24 mmol/L (22-29); Chloride 105 mmol/L (98-107); Estimated GFR-MDRD Greater than 90; Glucose 88 mg/dL (70-105); Magnesium 2.1 mg/dL (1.6-2.6); Potassium 3.5 mmol/L (3.5-5.1); Sodium 137 mmol/L (136-145)
[2019-06-26] MEDS ORDERED: Famotidine/PF 20 mg/2ml Vial SLOW IVP SCH (09:00)
[2019-06-26] MEDS ORDERED: Clopidogrel Bisulfate 75 MG TAB PO SCH (09:00)
[2019-06-26] MEDS ORDERED: Metoprolol Tartrate 50 MG TAB PO SCH (09:00)
--- NOTE | 2019-06-26 09:05 | CT ---
CTA Angio Chest W WO Con HISTORY: History of PE. Shortness of breath and heart palpitations. COMPARISON: 03/15/2019 study. FINDINGS: The lungs are clear of any infiltrative process. There are no pulmonary nodules or pleural effusions identified. There is no significant mediastinal or hilar adenopathy. No significant axillary lymphadenopathy. The thoracic aorta is normal in caliber. There is good pulmonary artery opacification I do not see any evidence for pulmonary embolus on this exam. Visualized liver parenchyma shows no focal findings. IMPRESSION: No CT evidence for pulmonary embolus.
--- NOTE | 2019-06-26 09:06 | PDOC.HHP ---
Hospitalist HPI - History of Present Illness Palpitations History of Present Illness: Mr. Babin is a 39 year old man presenting with complaints of palpitations that have been occurring since he was recently discharged from the hospital on 2018. He went into cardiac arrest at home with CPR done on scene with ROSC. He was found to have a STEMI and taken to the laborer drying department, found to have 100% stenosis of RCA, 70% stenosis of LAD, 30% stenosis of the circumflex. He underwent cardioversion for Afib as well and converted to sinus tachycardia. He developed a DVT to the LUE associated with an IV catheter and CTA revealed a ANTHONY PE. He was placed on Coumadin. He had an Echo done post catherization showing an EF of 40-45% with hypokinesis of the inferoposterior wall. Following discharge he was followed by Dr. Watson but for unmentioned reasons he and his were very unhappy with the visit. They were planning to seek a second opinion and state these symptoms were mentioned and he was advised to come in if it lasted longer than a few seconds as it had been doing until last night. Patient states he usually feels a "flutter" in his neck and does not note any elevation in his HR when he checks it. Tends to happen most at night and lasts a few seconds. Last night it lasted 2-3 hours with no changes noted on the monitor in the ER or on the EKG. He suspected this was due to the Metoprolol since it has been happening since discharge. According to his , he has not been fully compliant with his Coumadin checks and has had significant fluctuations in the INR. Most recently the dose was reduced. At present the patient denies any complaints and states he has been feeling well overnight (he has been in the ER since last night). ED Course: EKG done in the ER showed NSR with HR of 72, TTc 427 ms, no ST changes or Twave abnormalities. He had a chest xray done which was unremarkable. Laboratory studies done notable for subtherapeutic INR of 1.7 and normal d- dimer. Otherwise unremarkable. Hospitalist ROS - Review of Systems Constitutional: denies: fever, chills, sweats, weakness, malaise, other Eyes: denies: pain, vision change, conjunctivae inflammation, eyelid inflammation, redness, other ENT: denies: ear pain, ear discharge, nose pain, nose discharge, nose congestion , mouth pain, mouth swelling, throat pain, throat swelling, other Respiratory: denies: cough, dry, shortness of breath, hemoptysis, SOB with excertion, pleuritic pain, sputum, wheezing, other Cardiovascular: reports: palpitations. denies: chest pain, orthopnea, paroxysmal noc. dyspnea, edema, light headedness, other Gastrointestinal: denies: nausea, vomiting, abdominal pain, diarrhea, constipation, melena, hematochezia, other Genitourinary: denies: dysuria, frequency, incontinence, hematuria, retention, other Musculoskeletal: denies: neck pain, shoulder pain, arm pain, back pain, hand pain, leg pain, foot pain, other Skin: denies: rash, lesions, stephanie, bruising, other Neurological: denies: weakness, numbness, incoordination, change in speech, confusion, seizures, other Hospitalist History - Past Medical History Source: patient Cardiac: reports: IA, Other (LUE DVT) Pulmonary: reports: asthma, pulmonary embolism SERVICE DESK TECHNICIAN: reports: no pertinent history Gastrointestinal: reports: no pertinent history Heme/Onc: reports: no pertinent history Hepatobiliary: reports: no pertinent history Psych: reports: Anxiety Musculoskeletal: reports: no pertinent history Rheumatologic: reports: no pertinent history Infectious Disease: reports: no pertinent history ENT: reports: no pertinent history Renal/: reports: no pertinent history Endocrine: reports: Diabetes Dermatology: reports: no pertinent history - Past Surgical History Past Surgical History: reports: Tonsillectomy, Other (Cardiac stent) - Family History Family History: reports: no pertinent history - Social History Smoking Status: Never smoker Alcohol: reports: None (Previous heavy alcohol consumption, >10 years ago.) Drugs: reports: none Living Situation: With Family Activity level: independent ambulation - Exam General Appearance: NAD, awake alert Eye: PERRL, anicteric sclera ENT: normocephalic atraumatic, no oropharyngeal lesions, moist mucosa Neck: supple, symmetric, no JVD, no thyromegaly, no lymphadenopathy Heart: RRR, no murmur, no gallops, no rubs, normal peripheral pulses Respiratory: CTAB, no wheezes, no rales, no ronchi, normal chest expansion, no tachypnea Gastrointestinal: soft, non-tender, non-distended, normal bowel sounds, no palpable masses, no hepatomegaly, no guarding, no rigidity Extremities: no cyanosis, no clubbing, no edema Extremities - other findings: Palpable nodularity at site of previous LUE DVT, per patient was larger Skin: normal turgor, no lesions, no rashes Neurological: cranial nerve grossly intact, normal sensation to touch, no weakness, no focal deficits Musculoskeletal: normal tone, normal strength, no muscle wasting Psychiatric: normal affect, normal behavior, A&O x 3 Hospitalist Results - Labs Result Diagrams: 06/26/19 07:59 06/26/19 07:59 Lab results: WBC 6.5 thou/uL (4.8-10.8) 06/26/19 07:59 Hgb 16.3 g/dL (14.0-18.0) 06/26/19 07:59 Hct 48.2 % (42.0-52.0) 06/26/19 07:59 MCV 84.3 fL (78.0-98.0) 06/26/19 07:59 Plt Count 137 thou/uL (130-400) 06/26/19 07:59 Neutrophils % 57.0 % (42.0-75.0) 06/26/19 07:59 Sodium 137 mmol/L (136-145) 06/26/19 07:59 Potassium 3.5 mmol/L (3.5-5.1) 06/26/19 07:59 Chloride 105 mmol/L (98-107) 06/26/19 07:59 Carbon Dioxide 24 mmol/L (22-29) 06/26/19 07:59 BUN 18 mg/dL (8.9-20.6) 06/26/19 07:59 Creatinine 0.90 mg/dL (0.7-1.3) 06/26/19 07:59 Glucose 88 mg/dL (70-105) 06/26/19 07:59 Calcium 9.3 mg/dL (7.8-10.44) 06/26/19 07:59 Total Bilirubin 0.5 mg/dL (0.2-1.2) 06/25/19 23:15 AST 14 U/L (5-34) 06/25/19 23:15 ALT 24 U/L (8-55) 10/07/19 23:15 Alkaline Phosphatase 53 U/L (40-110) 06/25/19 23:15 Troponin I Less than 0.010 ng/mL (< 0.028) 06/26/19 05:48 B-Natriuretic Peptide 47.6 pg/mL (0-100) 06/26/19 07:59 Serum Total Protein 7.6 g/dL (6.0-8.3) 06/25/19 23:15 Albumin 4.7 g/dL (3.5-5.0) 06/25/19 23:15 Lipase 23 U/L (8-78) 06/25/19 23:15 - Radiology Interpretation Chest x-ray Status: report reviewed by nv Hospitalist H&P A/P - Problem (1) Palpitations Code(s): R00.2 - PALPITATIONS Status: Acute (2) Subtherapeutic anticoagulation Code(s): Z51.81 - ENCOUNTER FOR THERAPEUTIC DRUG LEVEL MONITORING; Z79.01 - TRANSITION PROGRAM MANAGER (CURRENT) USE OF ANTICOAGULANTS Status: Acute (3) History of ST elevation myocardial infarction (STEMI) Code(s): I25.2 - OLD MYOCARDIAL INFARCTION Status: Chronic (4) History of coronary artery stent placement Code(s): Z95.5 - PRESENCE OF CORONARY ANGIOPLASTY IMPLANT AND GRAFT Status: Chronic (5) History of pulmonary embolism Code(s): Z86.711 - PERSONAL HISTORY OF PULMONARY EMBOLISM Status: Chronic (6) Anxiety Code(s): F41.9 - ANXIETY DISORDER, UNSPECIFIED Status: Chronic (7) Diabetes mellitus Code(s): E11.9 - TYPE 2 DIABETES MELLITUS WITHOUT COMPLICATIONS Status: Chronic (8) Asthma Code(s): J45.909 - UNSPECIFIED ASTHMA, UNCOMPLICATED Status: Chronic - Plan Plan: Repeat labs this am. CTA chest. If positive, will give Lovenox. Otherwise resume Coumadin. Gentle IV fluids. Continuous cardiac monitoring. Consult placed to Dr. Peterson. Coumadin, pharmacy to dose. UA/UCx and UDS. Monitor glucose, ISS.
[2019-06-26] MEDS ORDERED: Dextrose 5% in Water 1,000 ML IV PRN (09:24)
[2019-06-26] MEDS ORDERED: HumaLOG 300 UNITS/3 ML VIAL SC PRN ×2 (09:24)
[2019-06-26] MEDS ORDERED: Dextrose 50% Abboject 50 ML SYRINGE SLOW IVP PRN (09:24)
[2019-06-26 09:26] VITALS: BMI 31.6
[2019-06-26] MEDS ORDERED: Clopidogrel Bisulfate 75 MG TAB ONE (09:47)
[2019-06-26] MEDS ORDERED: Famotidine/PF 20 mg/2ml Vial ONE (09:47)
[2019-06-26] MEDS ORDERED: Metoprolol Tartrate 50 MG TAB ONE (09:49)
[2019-06-26] MEDS ORDERED: ISOVUE-370 76%-LOCM 1 ML ONE (10:01)
[2019-06-26 11:39] LABS: Bacteria/HPF None Seen HPF (None Seen); Bilirubin Negative (Negative); Blood, Urine Negative (Negative); Clarity Clear (Clear); Glucose, Urine (Dipstick) Normal (Negative); Leukocyte Negative Leu/uL (Negative); Nitrite Negative (Negative); Protein, Urine (Dipstick) Negative (Neg-Trace); RBC/HPF 0-3 HPF (0-3); Squamous Epithelial 0-3 HPF (0-3); Urobilinogen Normal mg/dL (Less than 2); WBC/HPF 0-3 HPF (0-3)
[2019-06-26 11:43] LABS: Urine Culture Reflex No No
[2019-06-26 13:03] VITALS: BP 136/97; TEMP 97.8
[2019-06-26] MEDS ORDERED: Warfarin Sodium 7.5 MG TAB PO SCH (17:00)
[2019-06-26] MEDS ORDERED: Atorvastatin Calcium 40 MG TAB PO SCH (21:00)
--- NOTE | 2019-06-27 07:53 | CON ---
DATE OF CONSULTATION: 06/26/2019 The patient was seen in the emergency room on 06/26/2019. INDICATION FOR CONSULTATION: This is a 39-year-old gentleman, who underwent angioplasty and stent placement to the right coronary artery on I believe March 11 of this year. It was into the right posterolateral branch of the right coronary artery, which is 100% occluded and then underwent a 2.5 x 16 mm stent, this is non-drug coated. He also, apparently prior to this, had a ventricular fibrillation arrest at home. CPR was initiated prior to that and then he was brought to the emergency room and then subsequently underwent a stent placement. He did relatively well. He does have history of anxiety, and this time, he continues to have some palpitations. He denied any chest pain. He continues to work some at [email or web address], but he says he has been noticing the palpitations more so at stress then with rest, but he denies any other shortness of breath or any other symptoms associated with it except for the palpitations, he does notice it up in his neck area, but otherwise has been doing relatively well. He has been taking his medications he says, but he has been on Coumadin after he also experienced a PE on his last hospital admission after having a left arm superficial thrombus or DVT, I believe this is DVT which then became a pulmonary embolus in the left upper lobe. He has been on Coumadin. His INR was 1.7. He has been followed at the [facility] and his INR recently was 2.3, and now, he is on approximately 7.5 mg of Coumadin on a daily basis. He has not been taking his Lipitor. He has been hurting all over and does not want to take statins and has been trying to figure out what else he can do, but he has been taking his Plavix and the Coumadin as well as metoprolol. He was thinking that perhaps metoprolol was what was causing his palpitations; however, his heart rate at this time is in the 70s and I do not see that he has had any bradycardia that might would account for a PVC that would arise, but otherwise I do not see any since he has been in the emergency room, he has not had any palpitations or PVCs, and EKG does not show any abnormalities except for the old inferior myocardial infarction. At this time, he is otherwise stable. PAST MEDICAL HISTORY: Significant for myocardial infarction, pulmonary embolus, anxiety, and asthma. He has had hypercholesterolemia. He denies any history of hypertension or diabetes. MEDICATIONS: Include; 1. Plavix. 2. Metoprolol. 3. Coumadin. He also had a CT scan performed today, which showed no evidence of pulmonary emboli. FAMILY HISTORY: His father also had a myocardial infarction at age 58. SOCIAL HISTORY: He is . He has no significant alcohol or tobacco abuse. He continues to work at [email or web address]. REVIEW OF SYSTEMS: A 12-point review of systems unremarkable except that noted in history of present illness, except for the anxiety and the palpitations. ALLERGIES: NONE. PHYSICAL EXAMINATION: GENERAL: Reveals a well-developed, well-nourished gentleman, in no acute distress at this time. He is alert. He is oriented. He is pleasant. He appears to be very stable at this time. He has no significant anxiety. HEENT: Shows the head to be normocephalic and atraumatic. Carotid pulses are present. There were no bruits. CHEST: Clear to auscultation without rales, rhonchi, or wheezing. CARDIOVASCULAR: Reveals a regular rate and rhythm. Normal S1 and S2. No S3 or S4. There were no significant murmurs, heaves, thrills, bruits, or rubs. ABDOMEN: Soft, nontender. Positive bowel sounds are present. EXTREMITIES: Show no clubbing, cyanosis, or edema. Pedal pulses are present. He does have evidence of an old forearm superficial thrombus, but I could not palpate a deep thrombus in the left upper arm, but obviously this could certainly be present. Otherwise, the extremities were unremarkable. No edema was noted. NEUROLOGIC: The patient appears to be fully intact. He is very calm at this time, does not appear to be too anxious. DIAGNOSTIC STUDIES: EKG shows a normal sinus rhythm, no acute changes. Evidence of old inferior myocardial infarction is present. LABORATORY AND IMAGING DATA: Shows a potassium of 3.5, sodium was 137, BUN was 18, creatinine 0.9, blood sugar was 88. Hemoglobin 16.3, hematocrit 48.2, WBC of 6.5, platelet count was 137,000. INR is 1.7. Troponin-I is negative x3. His BNP is 47. EKG as noted above. Chest x-ray is unremarkable. CT scan was unremarkable for any pulmonary embolus. IMPRESSION: 1. A 39-year-old gentleman, who has some degree of anxiety. He is status post angioplasty and stent placement to the right coronary artery, who suffered a ventricular fibrillation arrest in the past and had been doing very well at home , but complains of some palpitations. At this time, I would suggest we place a monitor on him and watching the amount of palpitations that he has. He will follow up with Dr. Watson after the results of the monitor. For further evaluation, I would continue his present medications at this time. He otherwise appears to be stable. 2. History of anxiety. He will need to follow up with [facility] whether or not he needs some antianxiety medications. 3. History of possible chronic obstructive pulmonary disease or asthma. He is very stable at this time. No abnormalities are being noted. He is tolerating the beta-blockers without problems. 4. Status post myocardial infarction with angioplasty and stent placement. I do not see any EKG changes to indicate ischemia nor any evidence of abnormalities in the cardiac enzymes. From my perspective, the patient could be discharged to home and can follow up after the monitor. I will arrange for the office to place a monitor on the patient prior to him leaving today. Job ID: [id number]
--- NOTE | 2019-07-01 00:12 | EKG ---
Test Reason : Blood Pressure : / mmHG Vent. Rate : 072 BPM Atrial Rate : 072 BPM P-R Int : 150 ms QRS Dur : 114 ms QT Int : 390 ms P-R-T Axes : 041 -17 -07 degrees QTc Int : 427 ms Normal sinus rhythm Inferior infarct , age undetermined Abnormal ECG Confirmed by SUSANA REDDY ([id number]), acquisition editor PAUL MOONEY ([id number]) on 07/01/2019 12:12:14 AM Referred By: Confirmed By:SUSANA REDDY
== END 2019-06-26 15:05 | disposition home or self-care (01) ==
LOC: ERS 21:27 → ERHOLD 06-26 00:29
PROVIDERS: ADMIT Hospitalist; ATTEND Hospitalist
DX: R00.2 Palpitations (principal); I25.2 Old myocardial infarction; E11.9 Type 2 diabetes mellitus without complications; F41.9 Anxiety disorder, unspecified; J45.909 Unspecified asthma, uncomplicated; I26.99 Other pulmonary embolism without acute cor pulmonale; E78.00 Pure hypercholesterolemia, unspecified; Z79.01 Long term (current) use of anticoagulants; Z79.899 Other long term (current) drug therapy; Z88.8 Allergy status to other drugs, medicaments and biological substances; Z95.5 Presence of coronary angioplasty implant and graft
CPT/HCPCS: 36415; 36416; 71045; 71275; 80048; 80053; 81001; 83690; 83735; 83880; 84484; 85025; 85379; 85610; 85730; 93005; G0378; Q9966; S0028

== ENCOUNTER 2019-06-28 18:04 | Emergency (ER) | payer SELFPAY ==
[2019-06-28 19:27] LABS: #Basophils 0.1 thou/uL (0.0-0.2); #Lymphocytes 1.9 thou/uL (1.20-3.40); #Monocytes 0.4 thou/uL (0.11-0.59); %Basophils 1.3 % (0.0-1.0); %Eosinophils 0.5 % (0.0-10.0); %Lymphocytes 29.7 % (21.0-51.0); %Monocytes 6.5 % (0.0-10.0); Hemoglobin 16.3 g/dL (14.0-18.0); Mean Corpuscular HGB CONC 34.8 g/dL (32.0-36.0); Mean Corpuscular Hemoglobin 29.3 pg (27.0-31.0); Mean Corpuscular Volume 84.1 fL (78.0-98.0); Mean Platelet Volume 9.9 fL (7.4-10.4); Platelet Count 153 thou/uL (130-400); RBC Distribution Width 12.4 % (11.5-14.5); Red Blood Cell (RBC) Count 5.55 mill/uL (4.70-6.10); White Blood Cell (WBC) Count 6.4 thou/uL (4.8-10.8)
--- NOTE | 2019-06-28 19:43 | RAD ---
XR Chest Pa Lat STANDARD History: Dizziness Comparison: Radiograph June 25, 2019 Findings: There are sternal heart monitor projects over the midline chest. Lungs are clear. No pneumo thorax. No effusion. No acute osseous abnormality. Impression: No acute intrathoracic abnormality.
[2019-06-28 23:05] LABS: ALT (SGPT) 22 U/L (8-55); AST (SGOT) 12 U/L (5-34); Albumin 4.7 g/dL (3.5-5.0); Alkaline Phosphatase 49 U/L (40-110); Anion Gap 11 mmol/L (10-20); BUN (Urea Nitrogen) 24 mg/dL (8.9-20.6); Bilirubin, Total 0.4 mg/dL (0.2-1.2); Calc. Creatinine Clearance 0 mL/min (70-130); Calcium 9.7 mg/dL (7.8-10.44); Carbon Dioxide 24 mmol/L (22-29); Chloride 106 mmol/L (98-107); Estimated GFR-MDRD Greater than 90; Globulin 2.9 g/dL (2.4-3.5); Glucose 80 mg/dL (70-105); Potassium 3.8 mmol/L (3.5-5.1); Protein, Total 7.6 g/dL (6.0-8.3); Sodium 137 mmol/L (136-145)
[2019-06-29 04:45] LABS: Troponin I Less than 0.010 ng/mL (< 0.028)
== END 2019-06-29 04:21 | disposition home or self-care (01) ==
LOC: ERS 18:04
DX: R07.89 Other chest pain (principal); J45.909 Unspecified asthma, uncomplicated; I25.2 Old myocardial infarction; F41.9 Anxiety disorder, unspecified; F32.9 Major depressive disorder, single episode, unspecified; Z95.5 Presence of coronary angioplasty implant and graft; Z79.01 Long term (current) use of anticoagulants; Z79.899 Other long term (current) drug therapy
CPT/HCPCS: 36415; 71046; 80053; 82550; 83880; 84484; 85025; 93005